=== PATIENT | female | born 1945 | race Caucasian/White ===

== ENCOUNTER 2018-10-07 07:02 | Emergency (ER) | payer MEDICARE, MEDICAID ==
--- OUTSIDE RECORDS SUMMARY | 2018-10-07 07:10 | XMS REPORT | Continuity of Care Document ---
:1945 External Reference #:[id number] Author Name SawyerJbHelena Care Team Providers Name Role Phone Dana Cochran MD Primary Care Physician Unavailable Payers Date Identification Numbers Payment Provider Subscriber Effective: 2018 Policy Number: [id number] Medicare Mohit Macdonaldel PayID: [id number] [address] [place] [address] Expires: 2018 Policy Number: [id number] Medicare Verla Mihir PayID: [id number] [address] [place] [address] Policy Number: [id number] Medicaid [employer]it [employer] Name: 1 [address] PayID: [id number] [place] [address] Advance Directives Description No Information Available Problems Active Problems Provider Date Chronic obstructive lung disease Vi Chen MD Onset: 04/06/2016 Disturbance in sleep behavior Vi Chen MD Onset: 04/06/2016 Obesity Vi Chen MD Onset: 04/06/2016 Encounter for screening for malignant Vi Chen MD Onset: 04/06/2016 neoplasm of respiratory organs Chronic obstructive pulmonary disease with Vi Chen MD Onset: 2016 (acute) exacerbation Headache Chloe Morales M.D. Onset: 07/05/2016 Obstructive sleep apnea syndrome Vi Chen MD Onset: 10/11/2016 Family History Date Family Member(s) Observation Comments Father at age 42 was Etoh/Seizures Mother Heart issues at age 67 Siblings 5 All w/heart issues ; one brother and one sister from heart issues Social History Type Date Description Comments Sex Unknown Marital Status Occupation Retired Tobacco Use Start: Unknown Quit 2008 ETOH Use Denies alcohol use Tobacco Use Start: Unknown End: Patient is a former Unknown smoker Recreational Drug Use Denies Drug Use Tobacco Use Start: Unknown Light tobacco smoker less 1PPD x 30 (10 or fewer years cigarettes/day) Smoking Status Reviewed: 09/23/18 Light tobacco smoker less 1PPD x 30 (10 or fewer years cigarettes/day) Exercise Type/Frequency Exercises sporadically Allergies, Adverse Reactions, Alerts Active Allergies Reaction Severity Comments Date Omeprazole 04/06/2016 Nylon Dermatologic Reaction 04/06/2016 Medications Active Medications SIG Qnty Indications Ordering Date Provider Prednisone Take one 30tabs Billy Robin, 09/23/2018 10mg Tablets capsule/tablet M.D. daily by mouth Ipratropium 1 unit every 6 540ml J44.9 [facility], 04/25/2018 [place]/Albuterol hours as needed MD Sulfate 0.5-2.5(3)mg/3ML Solution Nebulizer 1 unit nebulization 1units J44.9 [facility] ([facility], 04/25/2018 Kit/Tubing/Mouthpiece every 4- 6 hours as MD needed Kit Nebulizer 1 unit nebulization 1units J44.9 [facility] ([facility], 04/25/2018 Device with albuterol MD every 6 hours and as needed Omeprazole 1 by mouth every 30caps K21.9 [facility] ([facility], 04/25/2018 40mg day MD Capsules Atorvastatin Calcium take 1 tablet at Unknown 06/14/2016 bedtime 20mg Tablets Ranitidine 1-2 by mouth as Unknown 06/14/2016 150mg directed Capsules Vitamin D3 as directed (winter Unknown 06/14/2016 1000Iu months only) Capsules Aspir-Low 1 by mouth every Unknown 04/05/2016 81mg Tablets day Symbicort 2 puff twice a day Unknown 04/05/2016 80-4.5mcg/Act Aerosol Multivitamin Women one daily Unknown 50+ 50+ Tablets Amlodipine Besylate 1 by mouth every Unknown 5mg day Tablets Dicyclomine HCL 1 every 6 hours as Unknown 10mg needed Capsules Spironolactone 1/2 tablet daily Unknown 25mg Tablets Citalopram 1 by mouth one time Dana Cochran, Hydrobromide per day 10mg Tablets Vitamin B-12 1 by mouth one time Unknown 1000mcg per day Ventolin HFA 2 puffs by mouth Unknown four times a day as 108(90Base) mcg/Act needed Aerosol History Medications Prednisone 1 tab by mouth 30tabs J44.9 Vi Chen, 03/03/2018 - 5mg every day every MD 04/24/2018 Tablets morning Depakote ER 1-2 tab by mouth 60tabs G44.52 Chloe Seals 07/05/2016 - 500mg at bedtime as Kerwin Morales 10/17/2017 Tablets ER 24HR directed. Prednisone take as directed, 21units J44.1 Vi Chen, 06/14/2016 - 5mg (21) 6 tabs day#1, 5 06/19/2016 TBPK tabs day#2, 4 tabs day#3,3 tabs day#4,2 tabs day#5,1 tab day#6 Bisoprolol Fumarate 1/2 by mouth every Unknown 06/14/2016 - day 07/04/2016 5mg Tablets Hyoscyamine Sulfate 1 tablet by mouth Unknown 06/14/2016 - as directed 10/17/2017 0.125mg Tablets Sub Venlafaxine HCL 1 by mouth every Unknown 04/05/2016 - day 06/13/2016 25mg Tablets Alprazolam one by mouth up to Unknown - 0.25mg three times daily 10/10/2016 Tablets as needed for anxiety Fioricet 1 by mouth twice a Unknown - day as needed 10/10/2016 50-300-40mg headache max 2 Capsules days/wk Bisoprolol Fumarate 1 by mouth one Dana Cochran, - time per day 03/02/2018 5mg Tablets (switching to Amlodipine soon 01/10/18) Dicyclomine HCL 2 by mouth as Dana Cochran, - needed 03/02/2018 10mg Capsules Prednisone Dana Cochran, - 5mg 09/23/2018 Tablets Immunizations Description No Information Available Vital Signs Date Vital Result Comment 09/23/2018 11:21am Height 62 inches 5'2" Weight 157.00 lb Heart Rate 74 /min BP Systolic Sitting 122 mmHg BP Diastolic Sitting 80 mmHg Pain Level 4 O2 % BldC Oximetry 96 % BMI (Body Mass Index) 28.7 kg/m2 09/01/2018 1:27pm Height 62 inches 5'2" Weight 155.00 lb Heart Rate 70 /min BP Systolic Sitting 120 mmHg Respiratory Rate 20 /min O2 % BldC Oximetry 95 % BMI (Body Mass Index) 28.3 kg/m2 04/25/2018 10:28am Height 62 inches 5'2" Weight 166.00 lb Heart Rate 60 /min BP Systolic Sitting 118 mmHg Lue regular cuff BP Diastolic Sitting 70 mmHg Lue regular cuff Respiratory Rate 16 /min O2 % BldC Oximetry 98 % BMI (Body Mass Index) 30.4 kg/m2 03/03/2018 1:37pm Height 62 inches 5'2" Weight 167.25 lb Heart Rate 68 /min BP Systolic Sitting 124 mmHg Lue regular cuff BP Diastolic Sitting 74 mmHg Lue regular cuff Respiratory Rate 16 /min O2 % BldC Oximetry 96 % BMI (Body Mass Index) 30.6 kg/m2 01/10/2018 3:22pm Height 62 inches 5'2" Weight 167.25 lb Heart Rate 54 /min BP Systolic Sitting 108 mmHg Rue reg cuff BP Diastolic Sitting 80 mmHg Rue reg cuff Respiratory Rate 18 /min O2 % BldC Oximetry 96 % On Ra BMI (Body Mass Index) 30.6 kg/m2 10/18/2017 10:39am Height 62 inches 5'2" Weight 160.00 lb Heart Rate 60 /min BP Systolic Sitting 108 mmHg BP Diastolic Sitting 66 mmHg Respiratory Rate 14 /min O2 % BldC Oximetry 94 % BMI (Body Mass Index) 29.3 kg/m2 02/25/2017 12:56pm Height 62 inches 5'2" Weight 156.00 lb Heart Rate 76 /min BP Systolic Sitting 122 mmHg BP Diastolic Sitting 78 mmHg Respiratory Rate 14 /min O2 % BldC Oximetry 96 % BMI (Body Mass Index) 28.5 kg/m2 12/24/2016 1:40pm Height 62 inches 5'2" Weight 159.00 lb Heart Rate 54 /min BP Systolic Sitting 128 mmHg BP Diastolic Sitting 96 mmHg Respiratory Rate 24 /min O2 % BldC Oximetry 97 % room air BMI (Body Mass Index) 29.1 kg/m2 11/01/2016 2:55pm Height 62 inches 5'2" Weight 159.00 lb Heart Rate 52 /min BP Systolic Sitting 124 mmHg BP Diastolic Sitting 62 mmHg Respiratory Rate 14 /min BMI (Body Mass Index) 29.1 kg/m2 10/11/2016 12:54pm Height 62 inches 5'2" Weight 159.00 lb Heart Rate 58 /min BP Systolic Sitting 120 mmHg BP Diastolic Sitting 80 mmHg Respiratory Rate 14 /min O2 % BldC Oximetry 98 % BMI (Body Mass Index) 29.1 kg/m2 07/05/2016 12:47pm Height 62 inches 5'2" Weight 157.00 lb Heart Rate 72 /min BP Systolic Sitting 112 mmHg BP Diastolic Sitting 68 mmHg Respiratory Rate 14 /min BMI (Body Mass Index) 28.7 kg/m2 06/21/2016 1:38pm Height 62 inches 5'2" Weight 158.50 lb reported Heart Rate 72 /min BP Systolic 110 mmHg BP Diastolic 68 mmHg Respiratory Rate 12 /min O2 % BldC Oximetry 97 % BMI (Body Mass Index) 29.0 kg/m2 06/14/2016 9:33am Height 62 inches 5'2" Heart Rate 68 /min BP Systolic Sitting 138 mmHg BP Diastolic Sitting 78 mmHg Respiratory Rate 16 /min O2 % BldC Oximetry 97 % 04/06/2016 7:43am Height 62 inches 5'2" Weight 165.38 lb Heart Rate 60 /min BP Systolic Standing 132 mmHg BP Diastolic Standing 74 mmHg Respiratory Rate 16 /min O2 % BldC Oximetry 96 % BMI (Body Mass Index) 30.2 kg/m2 Neck Circumference in inches 14.25 Results Test Date Facility Test Result H/L Range Note Comp Metabolic Panel 09/23/2018 [facility] Sodium 138 mmol/L N 135-145 [address] [place] [address] [phone] Potassium 4.1 mmol/L N 3.5-5.0 Chloride 99 mmol/L Low 101-111 Co2 Carbon Dioxide 30 mmol/L N 22-32 Anion Gap 9 mmol/L N 2-11 Glucose 122 mg/dL High 70-100 Blood Urea Nitrogen 16 mg/dL N 6-24 Creatinine 0.95 mg/dL N 0.51-0.95 BUN/Creatinine Ratio 16.8 N 8-20 Calcium 10.3 mg/dL N 8.6-10.3 Total Protein 7.3 g/dL N 6.4-8.9 Albumin 4.7 g/dL N 3.2-5.2 Globulin 2.6 g/dL N 2-4 Albumin/Globulin Ratio 1.8 N 1-3 Total Bilirubin 0.90 mg/dL N 0.2-1.0 Alkaline Phosphatase 78 U/L N 34-104 Alt 26 U/L N 7-52 Ast 20 U/L N 13-39 Egfr Non- 57.7 >60 Egfr 69.8 >60 1 CBC Auto Diff 09/23/2018 [facility] White Blood 8.7 10^3/uL N 3.5-10.[address] [place] [address] [phone] Red Blood Count 5.15 10^6/uL High 3.70-4.87 Hemoglobin 16.6 g/dL High 12.0-16.0 Hematocrit 48 % High 33-41 Mean Corpuscular Volume 93 fL N 80-97 Mean Corpuscular Hemoglobin 32 pg High 27-31 Mean Corpuscular HGB Conc 35 g/dL N 31-36 Red Cell Distribution Width 14 % N 10.5-15 Platelet Count 203 10^3/uL N 150-450 Mean Platelet Volume 8.7 fL N 7.4-10.4 Abs Neutrophils 6.9 10^3/uL N 1.5-7.7 Abs Lymphocytes 1.5 10^3/uL N 1.0-4.8 Abs Monocytes 0.3 10^3/uL N 0-0.8 Abs Eosinophils 0 10^3/uL N 0-0.6 Abs Basophils 0 10^3/uL N 0-0.2 Abs Nucleated RBC 0 10^3/uL Granulocyte % 78.7 % Lymphocyte % 17.1 % Monocyte % 3.7 % Eosinophil % 0.2 % Basophil % 0.3 % Nucleated Red Blood Cells % 0 Vitamin B12 And 09/23/2018 [facility] Vitamin B12 497 pg/mL N 180-914 2 Folate Serum [address] [place] [address] [phone] Folic Acid (Folate) > 20.00 ng/mL >3.99 Laboratory test 09/23/2018 [facility] Vitamin D 34.8 ng/mL N 20-50 [address] Total 25(Oh) [place] [address] [phone] Hla B27 09/23/2018 [facility] Hla B27 Negative [address] [place] [address] [phone] Hla B27 Interp See Comment 5 Laboratory test 09/23/2018 [facility] Erythrocyte Sed 3 mm/Hr N 0-[address] [place] [address] [phone] C Reactive Protein < 1.00 mg/L N <8.01 Protein 09/23/2018 [facility] Total 7.1 g/dL 6.3 - Electrophoresis [address] Protein(Pep) 7.9 [place] [id number] [phone] Albumin 3.7 g/dL 3.4-4.7 Alpha-1 Globulin 0.3 g/dL 0.1-0.3 Alpha-2 Globulin 1.2 g/dL Abnormal 0.6-1.0 Beta Globulin 1.2 g/dL 0.7-1.2 Gamma Globulin 0.8 g/dL 0.6-1.6 Albumin/Globulin Ratio 1.12 Impression See Comment 6 Laboratory test 02/27/2018 [facility] Cytology SEE RESULT [address] [employer] [place] [address] [phone] Laboratory test 02/25/2017 [facility] TSH (Thyroid 1.16 mcIU/mL N 0.34-[address] Stim Horm) .60 [place] [address] [phone] CBC Auto Diff 02/25/2017 [facility] White Blood 6.4 10^3/uL N 3.5-[address] Count .8 [place] [address] [phone] Red Blood Count 4.66 10^6/uL N 4.0-5.4 Hemoglobin 15.2 g/dL N 12.0-16.0 Hematocrit 44 % N 35-47 Mean Corpuscular Volume 94 fL N 80-97 Mean Corpuscular Hemoglobin 33 pg High 27-31 Mean Corpuscular HGB Conc 35 g/dL N 31-36 Red Cell Distribution Width 13 % N 10.5-15 Platelet Count 153 10^3/uL N 150-450 Mean Platelet Volume 9 um3 N 7.4-10.4 Abs Neutrophils 3.7 10^3/uL N 1.5-7.7 Abs Lymphocytes 2.1 10^3/uL N 1.0-4.8 Abs Monocytes 0.4 10^3/uL N 0-0.8 Abs Eosinophils 0.1 10^3/uL N 0-0.6 Abs Basophils 0 10^3/uL N 0-0.2 Abs Nucleated RBC 0 10^3/uL N Granulocyte % 58.8 % N 38-83 Lymphocyte % 32.9 % N 25-47 Monocyte % 6.2 % N 1-9 Eosinophil % 1.6 % N 0-6 Basophil % 0.5 % N 0-2 Nucleated Red Blood Cells % 0.1 N Connective Tissue 07/05/2016 [facility] Anti-Nuclear Antibody 0.5 U N [address] [place] [address] [phone] Cyclic Citrullinated Peptide 42.4 U Abnormal 9 Interpretation See Comment N 10 Laboratory test 07/05/2016 [facility] C Reactive < 1.00 N < 5.00 [address] Protein mg/[place] [address] [phone] 1 Because ethnic data is not always readily available, this report includes an eGFR for both -Americans and non- Americans. The National Kidney Disease Education Program (NKDEP) does not endorse the use of the MDRD equation for patients that are not between the ages of 18 and 70, are , have extremes of body size, muscle mass, or nutritional status, or are non- or non-. According to the National Kidney Foundation, irrespective of diagnosis, the stage of the disease is based on the level of kidney function: Stage Description GFR(mL/min/1.73 m(2)) 1 Kidney damage with normal or decreased GFR 90 2 Kidney damage with mild decrease in GFR 60-89 3 Moderate decrease in GFR 30-59 4 Severe decrease in GFR 15-29 5 Kidney failure <15 (or dialysis) 2 Normal Range 180 to 914 Indeterminate Range 145 to 180 Deficient Range <145 3 Total 25-Hydroxyvitamin D2 and D3 (25-OH-VitD) <10 ng/mL (severe deficiency) 10-19 ng/mL (mild to moderate deficiency) 20-50 ng/mL (optimum levels) 51-80 ng/mL (increased risk of hypercalciuria) >80 ng/mL (toxicity possible) 4 REFERENCE VALUE Not Applicable 5 RESULT: HLA-B27 antigen was not detected. ADDITIONAL INFORMATION Method: Flow Cytometry Performing Laboratory CLIA# [id number] Test Performed by: [facility] [address] [place] [id number] RESULT: No apparent monoclonal protein on serum electrophoresis. Test Performed by: [facility] [address] [place] [address] 7 SEE RESULT BELOW Name: MOHIT ASH : [address]: Ryan Huber MD Acct: [id number] Unit: [id number] AGE: 72 Location: THYROID Re02/27/18 SEX: F Status: REG REF SPEC: [id number] ARABELLA: 02/27/[address] [facility] [address]: Ryan Huber MD REQ: [id number] RECD: 02/27/18 STATUS: ANTOINE RODRIGUEZ DR: Iggy Holcomb MD _ ORDERED: FNA-IMG GUID BX, CYTO ADEQ-1ST P FINAL DIAGNOSIS Thyroid, right, Ultrasound guided, fine needle aspiration: Benign thyroid nodule- colloid/hyperplastic (Novi class II). The specimen demonstrates moderate watery colloid, a modest amount of benign appearing follicular epithelium arranged in uniform sheets, medium sized follicles and only occasional small groups. No features of papillary carcinoma are seen. In this clinical setting the risk of malignancy is less than 3%. Clinical management of this thyroid nodule should be based on clinical and radiographic features as well as the above. THYROID RIGHT - US GUIDED FINE NEEDLE ASPIRATION CLINICAL HISTORY Right nodule- 3.7x 1.5x 2.3cm IMMEDIATE INTERPRETATION Pass 1- 3 ?inadequate, pass 4-adequate CONTINUED ON NEXT PAGE DEPARTMENT OF PATHOLOGY, [address] [place] [address] Nhan Ruiz M.D. Director [facility] # [id number] RUN DATE: 02/27/18 [facility] LAB LIVE PAGE 2 Patient: MIHIRMOHIT BHATIA Sukh [id number] (Continued) GROSS DESCRIPTION (Continued) GROSS DESCRIPTION 18- alcohol fixed slide(s) 4 - passes Signed by and Reported on: Nahn Ruiz MD 09/11 1125 END OF REPORT DEPARTMENT OF PATHOLOGY, [address] [place] [address] Nhan Ruiz M.D. Director [facility] # [id number] REFERENCE VALUE <=1.0 (Negative) 9 Interpretation: Positive (40.0-59.9) REFERENCE VALUE <20.0 (Negative) 10 RESULT: Compatible with rheumatoid arthritis. Test Performed by: [address] [address] [employer]: Rayshawn Escobedo II, M.D., Ph.D. 11 Acute inflammation: >10.00 Procedures Date Code Description Status 05/13/2018 95870 Polysomnography Sleep Staging 4+ Parameters W/Cpap Completed 11/05/2017 94734 Spirometry Incl Graphic Record Completed 02/26/2017 96243 Sleep Study Unattended,HRT Rate,Oxygen Sat,Resp Completed Effort/Airflow 10/01/2016 37067 Polysomnography Sleep Staging 4+ Parameters Completed 05/31/2016 80392 Pulmonary Stress Test Simple Completed Encounters Type Date Location Provider Dx Diagnosis Office Visit 09/01/2018 Pulmonology And Vi Chen, J44.9 Chronic obstructive 1:45p Sleep Services Of pulmonary disease, Auditing Specialist unspecified K21.9 Gastro-esophageal reflux disease without esophagitis G47.33 Obstructive sleep apnea (adult) (pediatric) Office Visit 04/25/2018 10:45a Pulmonology And Sleep Vi Chen MD R05 [facility] J44.9 Chronic obstructive pulmonary disease, unspecified G47.33 Obstructive sleep apnea (adult) (pediatric) K21.9 Gastro-esophageal reflux disease without esophagitis Office Visit 03/03/2018 1:45p Pulmonology And Vi J44.9 Chronic Sleep Services Of MD Gustavo obstructive Auditing Specialist pulmonary disease, unspecified G47.33 Obstructive sleep apnea (adult) (pediatric) E66.09 Other obesity due to excess calories Office Visit 01/10/2018 3:00p Pulmonology And Vi J43.9 Emphysema, Sleep Services Of MD Gustavo unspecified [facility] G47.33 Obstructive sleep apnea (adult) (pediatric) Office Visit 10/18/2017 Pulmonology And Magali G47.33 Obstructive sleep 11:00a Sleep Services Of MAGALYS Lee, RN, apnea (adult) [facility] (pediatric) J44.9 Chronic obstructive pulmonary disease, unspecified Office Visit 02/25/2017 1:00p Pulmonology And Vi G47.33 Obstructive sleep Sleep [facility] Of MD Gustavo apnea (adult) [facility] (pediatric) J44.9 Chronic obstructive pulmonary disease, unspecified Office Visit 12/24/2016 1:45p Pulmonology And Vi G47.33 Obstructive sleep Sleep Services Of MD Gustavo apnea (adult) [facility] (pediatric) J44.9 Chronic obstructive pulmonary disease, unspecified Office Visit 11/01/2016 2:45p Jose Seals M25.50 Pain in Neurologic Kerwin Morales unspecified joint Services Of [facility] R76.0 Raised antibody titer G44.59 Other complicated headache syndrome Office Visit 10/11/2016 1:45p Pulmonology And Vi G47.33 Obstructive sleep Sleep Services Of MD Gustavo apnea (adult) [facility] (pediatric) J44.9 Chronic obstructive pulmonary disease, unspecified Office Visit 07/05/2016 1:00p Jose Seals G44.52 New daily Services Of Edy Morales M.D. persistent headache (NDPH) G44.41 Drug-induced headache, not elsewhere classified, intractable G44.59 Other complicated headache syndrome Office Visit 06/21/2016 2:00p Pulmonology And Vi J44.9 Chronic Sleep [facility] Of [facility] [place] obstructive Auditing Specialist pulmonary disease, unspecified G47.9 Sleep disorder, unspecified Office Visit 06/14/2016 10:00a Pulmonology And Vi J44.1 Chronic Sleep [facility] Of MD [place] obstructive Auditing Specialist pulmonary disease w (acute) exacerbation G47.9 Sleep disorder, unspecified Office Visit 04/06/2016 7:30a Pulmonology And Vi J44.9 Chronic [facility] Of [place] obstructive Auditing Specialist pulmonary disease, unspecified G47.9 Sleep disorder, unspecified Z87.891 Personal history of nicotine dependence E66.09 Other obesity due to excess calories Z68.30 Body mass index (BMI) 30.0-30.9, adult Plan of Treatment Future Appointment(s):10/28/2018 4:00 pm - Billy Robin M.D. at [facility]03/12/2019 1:45 pm - Vi Chen MD at [facility]09/23/2018 - Billy Robin M.D.M06.09 Rheumatoid arthritis without rheumatoid factor, multiple sitR51 HeadacheReferral:Ty Cano MD, Surgery,GeneralFollow up:Follow up in 3 to 4 weeks or sooner if kkhepwB89.5 Low back painM54.2 DjqpatqpbbcK93.0 Asymptomatic menopausal stateNew Xrays:Dexa Bone Study, Ordered: 09/23/18Z79.899 Other chcf ( current) drug vvwsahdB86.10 Myalgia, unspecified site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, site oyiogbpyecxK00.9 Vitamin D deficiency, rbokohlbabmZ22.8 Other disturbances of skin sensation
--- OUTSIDE RECORDS SUMMARY | 2018-10-07 07:10 | XMS REPORT | Continuity of Care Document ---
:1945 External Reference #:[id number] Author Name Cassy Lux Care Team Providers Name Role Phone Dana Cochran MD Primary Care Physician Unavailable Payers Date Identification Numbers Payment Provider Subscriber Effective: 2018 Policy Number: [id number] Medicare Verla Mihir PayID: [id number] [address] [place] [address] Expires: 2018 Policy Number: [id number] Medicare Verla Mihir PayID: [id number] [address] [place] [address] Policy Number: [id number] Medicaid [employer] Name: 1 1 [address] PayID: [id number] [place] [address] Advance Directives Description No Information Available Problems [...] or fewer years cigarettes/day) Smoking Status Reviewed: 09/29/18 Light tobacco smoker less 1PPD x 30 (10 or fewer years cigarettes/day) Exercise Type/Frequency Exercises sporadically Allergies, Adverse Reactions, Alerts Active Allergies Reaction Severity Comments Date Omeprazole 04/06/2016 Nylon Dermatologic Reaction 04/06/2016 Medications Active Medications SIG Qnty Indications Ordering Date Provider Prednisone Take one 30tabs Billy Robin, 09/23/2018 10mg Tablets capsule/tablet M.D. daily by mouth Ipratropium 1 unit every 6 540ml J44.9 [facility], 04/25/2018 Early/Albuterol hours as needed MD Sulfate 0.5-2.5(3)mg/3ML Solution Nebulizer 1 unit nebulization 1units J44.9 [facility], 04/25/2018 Kit/Tubing/Mouthpiece every 4- 6 hours as MD needed Kit Nebulizer 1 unit nebulization 1units J44.9 [facility], 04/25/2018 Device with albuterol MD every 6 hours and as needed Omeprazole 1 by mouth every 30caps K21.9 [facility], 04/25/2018 40mg day MD Capsules Atorvastatin Calcium [...] one time Dana Cochran, Hydrobromide per day MD 10mg Tablets Vitamin B-12 1 by mouth [...] - 5mg (21) 6 tabs day#1, 5 MD 06/19/2016 TBPK tabs day#2, 4 tabs day#3,3 [...] Available Vital Signs Date Vital Result Comment 09/29/2018 10:08am Height 62 inches 5'2" Weight 159.00 lb Heart Rate 62 /min BP Systolic 128 mmHg BP Diastolic 72 mmHg Respiratory Rate 16 /min Body Temperature 97.2 F BMI (Body Mass Index) 29.1 kg/m2 09/23/2018 11:21am Height 62 inches 5'2" Weight [...] H/L Range Note Comp Metabolic Panel 09/23/2018 [facility] Sodium 138 mmol/L N 135-[address] [place] [address] [phone] Potassium 4.1 mmol/L N 3.5-5.0 Chloride 99 [...] 69.8 >60 1 CBC Auto Diff 09/23/2018 [facility] White Blood 8.7 10^3/uL N 3.5-10.[address] [place] [address] [phone] Red Blood Count 5.15 10^6/uL High 3.70-4.87 [...] Cells % 0 Vitamin B12 And 09/23/2018 [facility] Vitamin B12 497 pg/mL N 180-[address] [place] [address] [phone] Folic Acid (Folate) > 20.00 ng/mL >3.99 Laboratory test 09/23/2018 [facility] Vitamin D 34.8 ng/mL N 20-[address] Total [address] [place] [id number] [phone] Hla B27 09/23/2018 [facility] Hla B27 Negative [address] [place] [address] [phone] Hla B27 Interp See Comment 5 Laboratory test 09/23/2018 [facility] Erythrocyte Sed 3 mm/Hr N 0-[address] [place] [address] [phone] C Reactive Protein < 1.00 mg/L N <8.01 Protein 09/23/2018 [facility] Total 7.1 g/dL 6.3 - Electrophoresis DRIVE Protein(Pep) 7.9 [place] [address] [phone] Albumin 3.7 g/dL 3.4-4.7 Alpha-1 Globulin 0.3 g/dL 0.1-0.3 Alpha-2 Globulin 1.2 g/dL Abnormal 0.6-1.0 Beta Globulin 1.2 g/dL 0.7-1.2 Gamma Globulin 0.8 g/dL 0.6-1.6 Albumin/Globulin Ratio 1.12 Impression See Comment 6 Laboratory test 02/27/2018 [facility] Cytology SEE RESULT [address] [employer] [place] [address] [phone] Laboratory test 02/25/2017 [facility] TSH (Thyroid 1.16 mcIU/mL N 0.34-[address] Stim Horm) .60 [place] [address] [phone] CBC Auto Diff 02/25/2017 [facility] White Blood 6.4 10^3/uL N 3.5-[address] DR[address] Count .8 [place] [address] [phone] Red Blood Count 4.66 10^6/uL N 4.0-5.4 [...] Cells % 0.1 N Connective Tissue 07/05/2016 [facility] Anti-Nuclear Antibody 0.5 U N [address] [place] [address] [phone] Cyclic Citrullinated Peptide 42.4 U Abnormal 9 Interpretation See Comment N 10 Laboratory test 07/05/2016 [facility] C Reactive < 1.00 N < 5.[address] Protein mg/[place] [address] [phone] 1 Because ethnic data is not always [...] INFORMATION Method: Flow Cytometry Performing Laboratory CLIA# [id number] Test Performed by: [facility] [address] [phone] [id number] RESULT: No apparent monoclonal protein on serum electrophoresis. Test Performed by: [facility] [address] [id number] SEE RESULT BELOW Name: MOHIT ASH : [address]: Ryan Huber MD Acct: [id number] Unit: [id number] AGE: 72 Location: THYROID Re02/27/18 SEX: F Status: REG REF SPEC: [id number] ARABELLA: 02/27/18-[address] [facility] [address]: Ryan Huber MD REQ: [id number] RECD: 02/27/18 STATUS: ANTOINE RODRIGUEZ DR: Iggy Holcomb MD _ ORDERED: FNA-IMG GUID BX, CYTO ADEQ-1ST P FINAL DIAGNOSIS Thyroid, right, Ultrasound guided, fine needle aspiration: Benign thyroid nodule- colloid/hyperplastic ([place] class II). The specimen demonstrates moderate watery [...] CONTINUED ON NEXT PAGE DEPARTMENT OF PATHOLOGY, [address] [place] [address] Nhan Ruiz M.D. Director CLIA # [id number] RUN DATE: 02/27/18 [facility] LAB LIVE PAGE 2 Patient: MOHIT ASH [id number] (Continued) GROSS DESCRIPTION (Continued) GROSS DESCRIPTION 18- alcohol fixed slide(s) 4 - passes Signed by and Reported on: Nhan Ruiz MD 09/11 1125 END OF REPORT DEPARTMENT OF PATHOLOGY, [address] [place] [address] Nhan Riuz M.D. Director [facility] # [id number] REFERENCE VALUE <=1.0 (Negative) 9 Interpretation: Positive (40.0-59.9) REFERENCE VALUE <20.0 (Negative) 10 RESULT: Compatible with rheumatoid arthritis. Test Performed by: [facility] [address] [address] [employer] Treating Inspector: Rayshawn Escobedo II, M.D., Ph.D. 11 Acute inflammation: >10.00 Procedures Date Code Description Status 05/13/2018 37231 Polysomnography Sleep Staging 4+ Parameters W/Cpap Completed 11/05/2017 08210 Spirometry Incl Graphic Record Completed 02/26/2017 55797 Sleep Study Unattended,HRT Rate,Oxygen Sat,Resp Completed Effort/Airflow 10/01/2016 57259 Polysomnography Sleep Staging 4+ Parameters Completed 05/31/2016 38315 Pulmonary Stress Test Simple Completed Encounters Type Date Location Provider Dx Diagnosis Office Visit 09/01/2018 Pulmonology And Gee Crane Chronic obstructive 1:45p Sleep Services Of pulmonary disease, [facility] unspecified K21.9 Gastro-esophageal reflux disease without esophagitis G47.33 Obstructive sleep apnea (adult) (pediatric) Office Visit 04/25/2018 10:45a Pulmonology And Sleep Vi Chen MD R05 Cough [facility] Of [facility] J44.9 Chronic obstructive pulmonary disease, unspecified G47.33 Obstructive sleep apnea (adult) (pediatric) K21.9 Gastro-esophageal reflux disease without esophagitis Office Visit 03/03/2018 1:45p Pulmonology And Vi Luz44.9 Chronic Sleep Services Of MD Gustavo obstructive [facility] pulmonary disease, unspecified G47.33 Obstructive sleep apnea (adult) (pediatric) E66.09 Other obesity due to excess calories Office Visit 01/10/2018 3:00p Pulmonology And Vi J43.9 Emphysema, Sleep Services Of MD Gustavo unspecified [employer] G47.33 Obstructive sleep apnea (adult) (pediatric) Office Visit 10/18/2017 Pulmonology And Magali G47.33 Obstructive sleep 11:00a Sleep Services Of MAGALYS Lee, RN, apnea (adult) [facility]- (pediatric) J44.9 Chronic obstructive pulmonary disease, unspecified Office Visit 02/25/2017 1:00p Pulmonology And Vi G47.33 Obstructive sleep Sleep Services Of MD Gustavo apnea (adult) [facility] (pediatric) J44.9 Chronic obstructive pulmonary disease, unspecified Office Visit 12/24/2016 1:45p Pulmonology And Vi G47.33 Obstructive sleep Sleep Services Of MD Gustavo apnea (adult) [facility] (pediatric) J44.9 Chronic obstructive pulmonary disease, unspecified Office Visit 11/01/2016 2:45p Jose Seals M25.50 Pain in Neurologic Reji Morales. unspecified joint Services Of [facility] R76.0 Raised antibody titer G44.59 Other complicated headache syndrome Office Visit 10/11/2016 1:45p Pulmonology And Vi G47.33 Obstructive sleep Sleep Services Of MD Gustavo apnea (adult) [facility] (pediatric) J44.9 Chronic obstructive pulmonary disease, unspecified Office Visit 07/05/2016 1:00p [place] [facility] Chloe GarnerCarla G44.52 New daily Services Of [facility] Reji Morales. persistent headache (NDPH) G44.41 Drug-induced headache, not elsewhere classified, intractable G44.59 Other complicated headache syndrome Office Visit 06/21/2016 2:00p Pulmonology And Vi J44.9 Chronic Sleep Services Of MD Gustavo obstructive [facility] pulmonary disease, unspecified G47.9 Sleep disorder, unspecified Office Visit 06/14/2016 10:00a Pulmonology And Vi J44.1 Chronic Sleep Services Of MD Gustavo obstructive [facility] pulmonary disease w (acute) exacerbation G47.9 Sleep disorder, unspecified Office Visit 04/06/2016 7:30a Pulmonology And Vi J44.9 Chronic Sleep Services Of MD Gustavo obstructive [facility] pulmonary disease, unspecified G47.9 Sleep disorder, unspecified Z87.891 Personal history of nicotine dependence E66.09 Other obesity due to excess calories Z68.30 Body mass index (BMI) 30.0-30.9, adult Plan of Treatment Future Appointment(s):10/07/2018 1:00 pm - Ty Cano MD, FACS at [facility]10/28/2018 4:00 pm - Billy Robin M.D. at [facility]03/12/2019 1:45 pm - Vi Chen MD at [facility]
[2018-10-07 07:13] VITALS: BP 133/71
--- NOTE | 2018-10-07 07:24 | UC ---
UC General HPI - HPI Summary HPI Summary: 5 days of worsening productive cough and shortness of breath. Has COPD and RA on chronic prednisone. Has started her nebulizer with no relief. Frontal H/A. Subjective fevers (thermometer broke) and chils. +DIarrhea. Body aches. No N/V or abdominal pain. No rash. Remote smoker. Meds: reviewed Appetite adequate. States she has been taking nyquil and dayquil. Feels like she is getting worse. - History of Current Complaint Chief Complaint: UCRespiratory Stated Complaint: FLU LIKE SYMPTOMS Time Seen by Provider: 10/07/18 07:12 Pain Intensity: 5 - Allergy/Home Medications Allergies/Adverse Reactions: Allergies Allergy/AdvReac Type Severity Reaction Status Date / Time Seasonal Allergies Allergy Intermediate Congestion Uncoded 10/07/18 07:13 Home Medications: Home Medications Dicyclomine CAP* [Bentyl CAP*] 10 mg PO DAILY 10/07/18 [History Confirmed ] Multivitamins/Minerals TAB* [Theragran/minerals TAB*] 1 tab PO DAILY 10/07/18 [ History Confirmed 10/07/18] amLODIPine TAB* [Norvasc 5 mg TAB*] 5 mg PO DAILY 10/07/18 [History Confirmed ] predniSONE TAB* [Deltasone TAB*] 5 mg PO BID 10/07/18 [History Confirmed ] PMH/Surg Hx/FS Hx/Imm Hx Previously Healthy: Yes Endocrine History: Dyslipidemia Cardiovascular History: Hypertension Respiratory History: COPD - Surgical History Surgical History: Yes Surgery Procedure, Year, and Place: Hysterectomy, Lumpectomy x 2 left breast benign. - Family History Known Family History: Positive: Hypertension - Social History Alcohol Use: None Substance Use Type: None Smoking Status (MU): Former Smoker When Did the Patient Quit Smoking/Using Tobacco: 11 yrs ago Review of Systems All Other Systems Reviewed And Are Negative: Yes Constitutional: Positive: Fever, Chills ENT: Positive: Sore Throat, Sinus Congestion Respiratory: Positive: Shortness Of Breath Gastrointestinal: Positive: Diarrhea Physical Exam Triage Information Reviewed: Yes Appearance: Other: - mildly ill appearing Vital Signs: Initial Vital Signs Temp 98.9 F 10/07/18 07:09 Pulse 88 10/07/18 07:09 Resp 16 10/07/18 07:09 BP 133/71 10/07/18 07:09 Pulse Ox 96 10/07/18 07:09 Vital Signs Reviewed: Yes Eyes: Positive: Conjunctiva Clear ENT: Positive: Pharyngeal erythema, Nasal congestion, Hoarse voice, Other - clear fluid b/l Neck: Positive: Enlarged Nodes @ - anterior cervical chain Respiratory: Positive: Other: - diminished breath sounds, rhonchi over RLL. No increase in wob Cardiovascular: Positive: RRR, No Murmur Abdomen Description: Positive: Soft Diagnostics - Radiology CXR Radiology Interpretation Completed By: Radiologist Summary of Radiographic Findings: hyperinflation, COPD, no acute process Course/Dx - Course Course Of Treatment: This is a 73 yr old with PMHx of COPD and RA on chronic prednisone presents with worsening cough, fever and SOB Assessment Flu: Negative CXR: Hyperinflation, no acute finding Dx: COPD exacerbation secondary to bronchitis Plan Recommend prednisone 40 mg daily for 5 days then back to your regular scheduled dosing Tessalon pearls as needed for cough Continue Albuterol nebulizer every 4 hours while ill, then change to as needed Start Azithromycin as prescribed If symptoms persist or worsen, recommend close follow up with your primary care provider, return to urgent care or go to the ER - Diagnoses Provider Diagnosis: COPD exacerbation, Bronchitis Discharge - Sign-Out/Discharge Documenting (check all that apply): Patient Departure All imaging exams completed and their final reports reviewed: Yes - Discharge Plan Condition: Fair Disposition: HOME Prescriptions: Azithromycin TAB* [Zithromax TAB (Z-MINAL) 250 mg #6 tabs] 2 tab PO .TODAY, THEN 1 DAILY #1 minal Benzonatate CAP* [Tessalon 100 MG CAP*] 200 mg PO TID PRN #30 cap PRN Reason: Cough predniSONE [Prednisone 20 MG TAB] 40 mg PO DAILY #10 tablet Patient Education Materials: COPD (Chronic Obstructive Pulmonary Disease) (ED) , Acute Bronchitis (ED) Referrals: Dana Cochran MD [Primary Care Provider] - Additional Instructions: Recommend prednisone 40 mg daily for 5 days then back to your regular scheduled dosing Tessalon pearls as needed for cough Continue Albuterol nebulizer every 4 hours while ill, then change to as needed Start Azithromycin as prescribed If symptoms persist or worsen, recommend close follow up with your primary care provider, return to urgent care or go to the ER - Billing Disposition and Condition Condition: FAIR Disposition: Home
[2018-10-07 07:37] LABS: Influenza A Molecular NEGATIVE (Negative); Influenza B Molecular NEGATIVE (Negative)
== END 2018-10-07 08:00 | disposition home or self-care (01) ==
LOC: UCEAST 07:02
DX: J44.1 Chronic obstructive pulmonary disease with (acute) exacerbation (principal); J34.89 Other specified disorders of nose and nasal sinuses; I10 Essential (primary) hypertension; R59.0 Localized enlarged lymph nodes; M06.9 Rheumatoid arthritis, unspecified; R19.7 Diarrhea, unspecified; Z87.891 Personal history of nicotine dependence; Z79.899 Other long term (current) drug therapy; Z91.09 Other allergy status, other than to drugs and biological substances
CPT/HCPCS: 71046; 99212; G0463

== ENCOUNTER 2018-10-15 15:32 | Emergency (ER) | payer MEDICARE, MEDICAID ==
--- OUTSIDE RECORDS SUMMARY | 2018-10-15 15:37 | XMS REPORT | Continuity of Care Document ---
:1945 External Reference #:[id number] Author Name Jose J Cassy Care Team Providers Name Role Phone Dana Cochran MD Primary Care Physician Unavailable Payers Date Identification Numbers Payment Provider Subscriber Effective: 2018 Policy Number: [id number] Medicare Verla Mihir PayID: [id number] [address] [facility] [address] Expires: 2018 Policy Number: [id number] Medicare Verla Mihir PayID: [id number] [address] [place] [address] Policy Number: [id number] Medicaid [employer] Name: 1 [address] PayID: [id number] [place] [address] Problems Active Problems Provider Date Chronic obstructive [...] or fewer years cigarettes/day) Smoking Status Reviewed: 10/09/18 Light tobacco smoker less 1PPD x 30 (10 or fewer years cigarettes/day) Exercise Type/Frequency Exercises sporadically Allergies, Adverse Reactions, Alerts Active Allergies Reaction Severity Comments Date Omeprazole 04/06/2016 Nylon Dermatologic Reaction 04/06/2016 Medications Active Medications SIG Qnty Indications Ordering Date Provider Prednisone Take one 30tabs Billy Robin, 09/23/2018 10mg Tablets capsule/tablet M.D. daily by mouth Ipratropium 1 unit every 6 540ml J44.9 [facility], 04/25/2018 [place]/Albuterol hours as needed MD Sulfate 0.5-2.5(3)mg/3ML Solution Nebulizer 1 unit nebulization 1units J44.9 [facility], 04/25/2018 Kit/Tubing/Mouthpiece every 4- 6 hours as MD needed Kit Nebulizer 1 unit nebulization 1units J44.9 [facility], 04/25/2018 Device with albuterol MD every 6 hours and as needed Omeprazole 1 by mouth every 30caps K21.9 [facility], 04/25/2018 40mg day MD Capsules Atorvastatin [...] 10mg Capsules Prednisone Dana Cochran, - 5mg MD 09/23/2018 Tablets Vital Signs Date Vital Result Comment 10/09/2018 9:57am Heart Rate 80 /min BP Systolic 150 mmHg BP Diastolic 90 mmHg Respiratory Rate 16 /min Body Temperature 98.0 F 09/29/2018 10:08am Height 62 inches 5'2" Weight [...] Date Facility Test Result H/L Range Note Laboratory test 09/29/2018 [facility] Surgical SEE RESULT 1 , [address] [place] [address] [phone] Laboratory test 09/23/2018 [facility] Erythrocyte Sed 3 mm/Hr N 0-[address] [place] [address] [phone] C Reactive Protein < 1.00 mg/L N <8.01 Protein 09/23/2018 [facility] Total 7.1 g/dL 6.3 - Electrophoresis [address] Protein(Pep) 7.9 [place] [address] [phone] Albumin 3.7 g/dL 3.4-4.7 Alpha-1 Globulin 0.3 g/dL 0.1-0.3 Alpha-2 Globulin 1.2 g/dL Abnormal 0.6-1.0 Beta Globulin 1.2 g/dL 0.7-1.2 Gamma Globulin 0.8 g/dL 0.6-1.6 Albumin/Globulin Ratio 1.12 Impression See Comment 3 Hla B27 09/23/2018 [facility] Hla B27 Negative [address] [place] [address] [phone] Hla B27 Interp See Comment 5 Laboratory test 09/23/2018 [facility] Vitamin D 34.8 ng/mL N 20-[address] Total 25(Oh) [place] [address] [phone] Vitamin B12 And 09/23/2018 [facility] Vitamin B12 497 pg/mL N 180-914 7 Folate Serum [address] [place] [address] [phone] Folic Acid (Folate) > 20.00 ng/mL >3.99 CBC Auto Diff 09/23/2018 [facility] White Blood 8.7 10^3/uL N 3.5-10.[address] [place] [address] [phone] Red Blood Count 5.15 10^6/uL High 3.70-4.87 [...] % Nucleated Red Blood Cells % 0 Comp Metabolic Panel 09/23/2018 [facility] Sodium 138 mmol/L N 135-[address] [place] [address] [phone] Potassium 4.1 mmol/L N 3.5-5.0 Chloride 99 [...] Egfr Non- 57.7 >60 Egfr 69.8 >60 8 Laboratory test 02/27/2018 [facility] Cytology SEE RESULT [address] Non-Quarry [employer] [place] [address] [phone] Laboratory test 02/25/2017 [facility] TSH (Thyroid 1.16 mcIU/mL N 0.34-[address] Stim Horm) .60 [place] [address] [phone] CBC Auto Diff 02/25/2017 [facility] White Blood 6.4 10^3/uL N 3.5-[address] Count .8 [place] [address] [phone] Red Blood Count 4.66 10^6/uL N 4.0-5.4 [...] Cells % 0.1 N Connective Tissue 07/05/2016 [facility] Anti-Nuclear 0.5 U N [address] [place] [address] [phone] Cyclic Citrullinated Peptide 42.4 U Abnormal 11 Interpretation See Comment N 12 Laboratory test 07/05/2016 [facility] C Reactive < 1.00 N < 5.00 [address] Protein mg/[place] [address] [phone] 1 [id number] 2 SEE RESULT BELOW Name: MOHIT ASH : [address]: Ty Cano MD Acct: [id number] Unit: [id number] AGE: 73 Location: [facility] Re09/29/18 SEX: F Status: REG REF SPEC: [id number] ARABELLA: 09/29/18-[address]: Ty Cano MD REQ: [id number] RECD: 09/29/18 STATUS: SOUT _ ORDERED: LEVEL 4 COMMENTS: [id number] FINAL DIAGNOSIS Temporal artery, left, biopsy: -- Segments of fibromuscular artery with minimal intimal hyperplasia. -- No evidence of arteritis identified. CLINICAL HISTORY No history given GROSS DESCRIPTION The specimen is received in formalin labeled, Temporal Artery Left Side, and consists of a 3.2 x 0.3 cm white-pink two red-brown serpentine tubular soft tissue fragment , which is inked, serially sectioned and entirely submitted in one cassette. Signed by and Reported on: Nhan Ruiz MD 12/12 1036 END OF REPORT DEPARTMENT OF PATHOLOGY, [address] [place] [address] Nhan Ruiz M.D. Director [facility] # [id number] 3 RESULT: No apparent monoclonal protein on serum electrophoresis. Test Performed by: [facility] [address] [place] [address] 4 REFERENCE VALUE Not Applicable 5 RESULT: HLA-B27 antigen was not detected. ADDITIONAL INFORMATION Method: Flow Cytometry Performing Laboratory CLIA# [id number] Test Performed by: [facility] - [address] [address] 6 Total 25-Hydroxyvitamin D2 and D3 (25-OH-VitD) <10 ng/mL (severe deficiency) 10-19 ng/mL (mild to moderate deficiency) 20-50 ng/mL (optimum levels) 51-80 ng/mL (increased risk of hypercalciuria) >80 ng/mL (toxicity possible) 7 Normal Range 180 to 914 Indeterminate Range 145 to 180 Deficient Range <145 8 Because ethnic data is not always readily [...] 15-29 5 Kidney failure <15 (or dialysis) 9 SEE RESULT BELOW Name: MOHIT ASH : [address]: Ryan Huber MD Acct: [id number] Unit: [id number] AGE: 72 Location: THYROID Re02/27/18 SEX: F Status: REG REF SPEC: [id number] ARABELLA: 02/27/18-[address] [facility] DR: Ryan Huber MD REQ: [id number] RECD: 02/27/18 STATUS: ANTOINE RODRIGUEZ DR: Iggy Holcomb MD _ ORDERED: FNA-IMG GUID BX, CYTO ADEQ-1ST P FINAL DIAGNOSIS Thyroid, right, Ultrasound guided, fine needle aspiration: Benign thyroid nodule- colloid/hyperplastic (Austin class II). The specimen demonstrates moderate watery [...] CONTINUED ON NEXT PAGE DEPARTMENT OF PATHOLOGY, [address] [employer] [place] [address] Nhan Ruiz M.D. Director [facility] # [id number] RUN DATE: 02/27/18 [facility] LAB LIVE PAGE 2 Patient: MOHIT ASH [id number] (Continued) GROSS DESCRIPTION (Continued) GROSS DESCRIPTION 18- alcohol fixed slide(s) 4 - passes Signed by and Reported on: Nhan Ruiz MD 09/11 1125 END OF REPORT DEPARTMENT OF PATHOLOGY, [facility] [employer] [place], [place] [address] Nhan Ruiz M.D. Director [facility] # [id number] 10 REFERENCE VALUE <=1.0 (Negative) 11 Interpretation: Positive (40.0-59.9) REFERENCE VALUE <20.0 (Negative) 12 RESULT: Compatible with rheumatoid arthritis. Test Performed by: [address] [address] Insurance Sales Producer: Rayshawn Escobedo II, M.D., Ph.D. 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, multiple sites R51 Headache M54.5 Low back pain M54.2 Cervicalgia Z78.0 Asymptomatic menopausal state M79.10 Myalgia, unspecified site 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, site unspecified E55.9 Vitamin D deficiency, unspecified R20.8 Other disturbances of skin sensation 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.52 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 Office Visit 09/01/2018 1:45p Pulmonology And Vi Luz44.9 Chronic Sleep [facility] MD Gustavo obstructive Generator Technician pulmonary disease, unspecified K21.9 Gastro-esophageal reflux disease without esophagitis G47.33 Obstructive sleep apnea (adult) (pediatric) Office Visit 04/25/2018 10:45a Pulmonology And Sleep Vi Chen MD R05 Cough [facility] Luz44.9 Chronic obstructive pulmonary disease, unspecified G47.33 Obstructive sleep apnea (adult) (pediatric) K21.9 Gastro-esophageal reflux disease without esophagitis Office Visit 03/03/2018 1:45p Pulmonology And Vi J44.9 Chronic [facility] obstructive Generator Technician pulmonary disease, unspecified G47.33 Obstructive sleep apnea (adult) (pediatric) E66.09 Other obesity due to excess calories Office Visit 01/10/2018 3:00p Pulmonology And Vi J43.9 Emphysema, Sleep [facility] unspecified Generator Technician G47.33 Obstructive sleep apnea (adult) (pediatric) Office Visit 10/18/2017 Pulmonology And Magali G47.33 Obstructive sleep 11:00a Sleep [facility]ALYS Lee, RN, apnea (adult) [facility] RECORDS SPECIALIST- (pediatric) J44.9 Chronic obstructive pulmonary disease, unspecified Office Visit 02/25/2017 1:00p Pulmonology And Vi G47.33 Obstructive sleep [facility] apnea (adult) [facility] (pediatric) J44.9 Chronic obstructive pulmonary disease, unspecified Office Visit 12/24/2016 1:45p Pulmonology And Vi G47.33 Obstructive sleep [facility]avo apnea (adult) [facility] (pediatric) J44.9 Chronic obstructive pulmonary disease, unspecified Office Visit 11/01/2016 2:45p Jose Seals M25.50 Pain in Neurologic Kerwin Morales unspecified joint [facility] R76.0 Raised antibody titer G44.59 Other complicated headache syndrome Office Visit 10/11/2016 1:45p Pulmonology And Vi G47.33 Obstructive sleep Sleep [facility] apnea (adult) [facility] (pediatric) J44.9 Chronic obstructive pulmonary disease, unspecified Office Visit 07/05/2016 1:00p Jose Seals G44.52 New daily [facility] Morales M.D. persistent headache (NDPH) G44.41 Drug-induced headache, not elsewhere classified, intractable G44.59 Other complicated headache syndrome Office Visit 06/21/2016 2:00p Pulmonology And Vi J44.9 Chronic Sleep [facility] obstructive Generator Technician pulmonary disease, unspecified G47.9 Sleep disorder, unspecified Office Visit 06/14/2016 10:00a Pulmonology And Vi J44.1 Chronic Sleep [facility] obstructive Generator Technician pulmonary disease w (acute) exacerbation G47.9 Sleep disorder, unspecified Office Visit 04/06/2016 7:30a Pulmonology And Vi J44.9 Chronic Sleep [facility] obstructive Generator Technician pulmonary disease, unspecified G47.9 Sleep disorder, unspecified Z87.891 Personal history of nicotine dependence E66.09 Other obesity due to excess calories Z68.30 Body mass index (BMI) 30.0-30.9, adult Plan of Treatment Future Appointment(s):10/28/2018 4:00 pm - Billy Robin M.D. at Rheumatology [facility]03/12/2019 1:45 pm - Vi Chen MD at Pulmonology And Sleep [facility]10/09/2018 - Ty Cano MD, [id number] HeadacheFollow up: None needed
[2018-10-15 15:44] VITALS: BP 115/67
[2018-10-15] MEDS ORDERED: Aspirin 81 mg CHEW TAB* 81 MG TAB.CHEW PO ONE (16:09)
--- NOTE | 2018-10-15 16:14 | UC ---
Cardiac HPI - HPI Summary HPI Summary: 73 yo female with chest pain that lasted one hour and resolved after arriving here Onset after gardening Has not felt well for days on chronic steroids for RA Hx of COPD and at her baseline dyspnea no weakness or near syncope Pain was 6-7/10 radiated to back and neck - History of Current Complaint Chief Complaint: UCChestPain Stated Complaint: CHEST CONGESTION Time Seen by Provider: 10/15/18 15:36 Hx Obtained From: Patient Onset/Duration: Sudden Onset, Lasting Minutes - 60 Timing: Constant Initial Severity: Moderate Current Severity: None Pain Intensity: 0 Chest Pain Location: Lower Sternal - wtih radiation to back and jaw Character: Tightness, Burning Alleviating Factor(s): Spontaneous Resolution Associated Signs & Symptoms: Positive: Chest Pain, Abdominal Pain - Heartburn and bloating lately. Past - Allergy/Home Medications Allergies/Adverse Reactions: Allergies Allergy/AdvReac Type Severity Reaction Status Date / Time Seasonal Allergies Allergy Intermediate Congestion Uncoded 10/15/18 15:44 Home Medications: Home Medications predniSONE [Prednisone 20 MG TAB] 10 mg PO DAILY 10/15/18 [History Confirmed ] PMH/Surg Hx/FS Hx/Imm Hx - Additional Past Medical History Additional PMH: RA on steroids for past 2 mos Previously Healthy: Yes Respiratory History: COPD - Surgical History Surgical History: Yes Surgery Procedure, Year, and Place: Hysterectomy, Lumpectomy x 2 left breast benign, face lift 2006 - Family History Known Family History: Positive: Hypertension - Social History Alcohol Use: None Substance Use Type: None Smoking Status (MU): Former Smoker When Did the Patient Quit Smoking/Using Tobacco: 11 yrs ago Review of Systems All Other Systems Reviewed And Are Negative: Yes Constitutional: Positive: Negative Skin: Positive: Negative Eyes: Positive: Negative ENT: Positive: Negative Respiratory: Positive: Shortness Of Breath - states she is at her baseline Cardiovascular: Positive: Chest Pain - Resolved Gastrointestinal: Positive: Other - abdominal bloating and dyspepsia Genitourinary: Positive: Negative Motor: Positive: Negative Neurovascular: Positive: Negative Musculoskeletal: Positive: Arthralgia - chronic Neurological: Positive: Negative Psychological: Positive: Negative Physical Exam Triage Information Reviewed: Yes Appearance: Well-Appearing, No Pain Distress, Well-Nourished Vital Signs: Initial Vital Signs Temp 97.9 F 10/15/18 15:36 Pulse 78 10/15/18 15:36 Resp 20 10/15/18 15:36 BP 115/67 10/15/18 15:36 Pulse Ox 93 10/15/18 15:36 Vital Signs Reviewed: Yes Eyes: Positive: Conjunctiva Clear ENT: Positive: Hearing grossly normal. Negative: Nasal congestion, Nasal drainage, Trismus, Muffled voice, Hoarse voice Dental: Negative: Gross Decay/Caries @, Dental Fracture @ Neck: Positive: Supple, Nontender Respiratory: Positive: Lungs clear, Normal breath sounds, No respiratory distress, No accessory muscle use Cardiovascular: Positive: RRR, No Murmur Abdomen Description: Negative: Nontender - tender epigastrium and RUQ Bowel Sounds: Positive: Present Musculoskeletal: Positive: ROM Intact, No Edema Neurological: Positive: Alert Psychological Exam: Normal Skin Exam: Normal Diagnostics - EKG Cardiac Rate: NL Cardiac Rhythm: Sinus: Normal Ectopy: None ST Segment: Normal - Assessment/Plan Course Of Treatment: Pt declines EMS. Arrive that despite her normal EKG this could be due to a cardiac event. She still desires work up for her symptoms and stated she will go to the ER via POV. She acknowledges risks of driving herself to the ER and has signed an AMA form D/W Dr Singleton - Clinical Impression Provider Diagnosis: Chest pain of uncertain etiology Discharge - Sign-Out/Discharge Documenting (check all that apply): Patient Departure All imaging exams completed and their final reports reviewed: No Studies - Discharge Plan Condition: Guarded Disposition: AGAINST MEDICAL ADVICE Referrals: Dana Cochran MD [Primary Care Provider] - Additional Instructions: please go directly to the ER for evaluation of your symptoms - Billing Disposition and Condition Condition: GUARDED Disposition: Against Medical Advice
== END 2018-10-15 16:20 | disposition left against medical advice (07) ==
LOC: UCEAST 15:32
DX: R07.89 Other chest pain (principal); J44.9 Chronic obstructive pulmonary disease, unspecified; M06.9 Rheumatoid arthritis, unspecified; Z87.891 Personal history of nicotine dependence
CPT/HCPCS: 99212; A9270-GY; G0463

== ENCOUNTER 2018-10-15 16:42 | Emergency (ER) | payer MEDICARE, MEDICAID ==
[2018-10-15 17:35] LABS: Hematocrit 47 % (35-47); Mean Corpuscular HGB Conc 34 g/dL (31-36); Mean Corpuscular Hemoglobin 32 pg (27-31); Mean Corpuscular Volume 94 fL (80-97); Mean Platelet Volume 7.7 fL (7.4-10.4); Platelet Count 243 10^3/uL (150-450); Red Cell Distribution Width 14 % (10.5-15); White Blood Count 8.9 10^3/uL (3.5-10.8)
[2018-10-15 17:47] LABS: Albumin 4.1 g/dL (3.2-5.2); Albumin/Globulin Ratio 1.5 (1-3); BUN/Creatinine Ratio 15.5 (8-20); Calcium 9.9 mg/dL (8.6-10.3); EGFR African American 68.1 (>60); EGFR Non-African American 56.3 (>60); Globulin 2.8 g/dL (2-4); Potassium 4.2 mmol/L (3.5-5.0); Total Bilirubin 0.7 mg/dL (0.2-1.0); Total Protein 6.9 g/dL (6.4-8.9)
[2018-10-15 17:52] LABS: CKMB ng/mL 2.5 ng/mL (0.6-6.3)
--- NOTE | 2018-10-15 17:54 | ED ---
HPI Chest Pain - HPI Summary HPI Summary: The patient is a 73 y/o F presenting to [facility] with a chief complaint of sudden onset anterior CP while at rest approximately 3 hours ago. She states she was outside gardening and then went inside to relax when the pain started. The sharp pain is not currently present, but she became worried when the pain started to radiate from her chest to her left ear. The pain is aggravated by deep breathing. She additionally states that her abdomen has been distended and rigid for a few days. She denies nausea, vomiting, and dizziness. She reports that she has chronic heart palpitations. - History of Current Complaint Chief Complaint: EDChestPainROMI Time Seen by Provider: 10/15/18 17:28 Hx Obtained From: Patient Onset/Duration: Started Hours Ago - three hours [place] Timing: Lasting Minutes Initial Severity: Moderate Current Severity: None Pain Intensity: 0 Pain Scale Used: 0-10 Numeric Chest Pain Location: Diffuse - anterior Chest Pain Radiates: Yes Chest Pain Radiates To:: Neck - left into neck Character: Sharp/Stabbing Aggravating Factor(s): Deep Breaths Alleviating Factor(s): Nothing Associated Signs and Symptoms: Positive: Chest Pain - resolved, Abdominal Pain - abdominal distention and rigidity. Negative: Dizziness, Nausea, Vomiting - Allergy/Home Medications Allergies/Adverse Reactions: Allergies Allergy/AdvReac Type Severity Reaction Status Date / Time Seasonal Allergies Allergy Intermediate Congestion Uncoded 10/15/18 16:50 PMH/Surg Hx/FS Hx/Imm Hx Endocrine/Hematology History: Reports: Hx Thyroid Disease - benign tumors Denies: Hx Diabetes, Hx Anemia Cardiovascular History: Reports: Hx Hypertension Respiratory History: Reports: Hx Asthma, Hx Chronic Obstructive Pulmonary Disease (COPD) GI History: Reports: Hx Ulcer - Gastric Ulcers age 22 Denies: Hx Jaundice - Surgical History Surgery Procedure, Year, and Place: Hysterectomy, Lumpectomy x 2 left breast benign, face lift 2007 Infectious Disease History: No Infectious Disease History: Denies: Hx Hepatitis, Hx Human Immunodeficiency Virus (HIV), Traveled Outside the [place] in Last 30 Days - Family History Known Family History: Positive: Hypertension - Social History Alcohol Use: None Hx Substance Use: No Substance Use Type: Reports: None Hx Tobacco Use: Yes Smoking Status (MU): Former Smoker Do You Chew or Dip Tobacco: No Review of Systems Positive: Chest Pain - anterior radiating into left ear (resolved) Positive: Abdominal Pain - distended abd, rigid abd. Negative: Vomiting, Nausea Neurological: Other - NEGATIVE: dizziness All Other Systems Reviewed And Are Negative: Yes Physical Exam - Summary Physical Exam Summary: VITAL SIGNS: Reviewed. GENERAL: Patient is a well-developed and nourished female who is lying comfortable in the stretcher. Patient is not in any acute respiratory distress. HEAD AND FACE: No signs of trauma. No ecchymosis, hematomas or skull depressions. No sinus tenderness. EYES: PERRLA, EOMI x 2, No injected conjunctiva, no nystagmus. EARS: Hearing grossly intact. Ear canals and tympanic membranes are within normal limits. MOUTH: Oropharynx within normal limits. NECK: Supple, trachea is midline, no adenopathy, no JVD, no carotid bruit, no c- spine tenderness, neck with full ROM. CHEST: Symmetric, no tenderness at palpation LUNGS: Clear to auscultation bilaterally. No wheezing or crackles. CVS: Regular rate and rhythm, S1 and S2 present, no murmurs or gallops appreciated. ABDOMEN: Soft, non-tender. No signs of distention. No rebound no guarding, and no masses palpated. Bowel sounds are normal. EXTREMITIES: FROM in all major joints, no edema, no cyanosis or clubbing. NEURO: Alert and oriented x 3. No acute neurological deficits. Speech is normal and follows commands. SKIN: Dry and warm Triage Information Reviewed: Yes Vital Signs On Initial Exam: Initial Vitals Temp Pulse Resp BP Pulse Ox 99.8 F 76 18 126/78 93 10/15/18 16:48 10/15/18 16:48 10/15/18 16:48 10/15/18 16:48 10/15/18 16:48 Vital Signs Reviewed: Yes Diagnostics - Vital Signs Vital Signs Temp Pulse Resp BP Pulse Ox 10/15/18 16:48 99.8 F 76 18 126/78 93 - Laboratory Lab Results: Lab Results 10/15/18 10/15/18 10/15/18 Range/Units 17:17 17:17 17:17 WBC 8.9 (3.5-10.8) 10^3/uL RBC 5.00 H (3.70-4.87) 10^6 /uL Hgb 16.0 (12.0-16.0) g/dL Hct 47 (35-47) % MCV 94 (80-97) fL MCH 32 H (27-31) pg MCHC 34 (31-36) g/dL RDW 14 (10.5-15) % Plt Count 243 (150-450) 10^3/uL MPV 7.7 (7.4-10.4) fL Neut % (Auto) Pending Lymph % (Auto) Pending [place] % (Auto) Pending Eos % (Auto) Pending Baso % (Auto) Pending Absolute Neuts (auto) Pending Absolute Lymphs (auto) Pending Absolute Monos (auto) Pending Absolute Eos (auto) Pending Absolute Basos (auto) Pending Absolute Nucleated RBC Pending Nucleated RBC % Pending INR (Anticoag Therapy) 1.00 (0.82-1.09) Sodium 138 (135-145) mmol/L Potassium 4.2 (3.5-5.0) mmol/L Chloride 100 L (101-111) mmol/L Carbon Dioxide 30 (22-32) mmol/L Anion Gap 8 (2-11) mmol/L BUN 15 (6-24) mg/dL Creatinine 0.97 H (0.51-0.95) mg/dL Est GFR ( Amer) 68.1 (>60) Est GFR (Non-Af Amer) 56.3 (>60) BUN/Creatinine Ratio 15.5 (8-20) Glucose 125 H (70-100) mg/dL Calcium 9.9 (8.6-10.3) mg/dL Total Bilirubin 0.70 (0.2-1.0) mg/dL AST 25 (13-39) U/L ALT 39 (7-52) U/L Alkaline Phosphatase 67 (34-104) U/L Total Creatine Kinase 82 (10-223) U/L CK-MB (CK-2) Pending Troponin I Pending Total Protein 6.9 (6.4-8.9) g/dL Albumin 4.1 (3.2-5.2) g/dL Globulin 2.8 (2-4) g/dL Albumin/Globulin Ratio 1.5 (1-3) TSH Pending Result Diagrams: 10/15/18 17:17 10/15/18 17:17 Lab Statement: Any lab studies that have been ordered have been reviewed, and results considered in the medical decision making process. - Radiology CXR Radiology Interpretation Completed By: Radiologist Summary of Radiographic Findings: No acute process. ED physician has reviewd this report. - EKG 16:53 Cardiac Rate: NL - 66 BPM EKG Rhythm: Sinus Rhythm EKG Comparison: No Significant Change - Similar to EKG on 08/30/04 Summary of EKG Findings: Nml axis, no ST elevations Re-Evaluation - Re-Evaluation First Eval Re-Evaluation Time: 20:40 Change: Improved Comment: I spoke with the patient concerning discharge home since she is asymptomatic. Chest Pain Course/Dx - Course Assessment/Plan: The patient is a 73 y/o F presenting to [facility] with a chief complaint of sudden onset anterior CP while at rest approximately 3 hours ago. She states she was outside gardening and then went inside to relax when the pain started. The sharp pain is not currently present, but she became worried when the pain started to radiate from her chest to her left ear. The pain is aggravated by deep breathing. She additionally states that her abdomen has been distended and rigid for a few days. She denies nausea, vomiting, and dizziness. She reports that she has chronic heart palpitations. Past medical history significant for rheumatoid arthritis, pulmonary edema, obstructive sleep apnea, restless leg syndrome, osteopenia, IBS, and thyroid nodule. EKG is a sinus rhythm at [address] elevations. In the ED course the patient was given an aspirin. Blood test results without any significant abnormality except for chloride 100, glucose is 125. Troponin is 0.00. Patient continues to be asymptomatic this point. Second troponin is 0.00. Therefore, I do not believe that the patient has a cardiomyopathy syndrome. Since the patient continues to be asymptomatic, the patient will be discharged home with follow-up with PCP. Heart score is only 2 therefore is low suspicion. I discussed all the findings and test results with the patient. Patient was instructed to return to the emergency room immediately if any of the symptoms return worsens. Plan of care was discussed with the patient and understands and agrees. All questions were answered at patient satisfaction. There were no further complaints or concerns. Lung exam before discharge: CTA B/L. Good air exchange. No wheezing or crackles heard. CVS: S1 and S2 present. No murmurs appreciated. Patient is alert and oriented x 3. Patient is hemodynamically stable. Patient will be discharged home with follow up PCP in the next 2-3 days. - Chest Pain Differential Diagnosis/HQI/PQRI: Acute MA, ACS, Angina, CHF, Chest Wall, GI Disease, Lower Respiratory Infection - Diagnoses Provider Diagnoses: Atypical chest pain, Chest pain Discharge - Sign-Out/Discharge Documenting (check all that apply): Patient Departure - Patient will be dsicharged home. Patient Received Moderate/Deep Sedation with Procedure: No - Discharge Plan Condition: Stable Disposition: HOME Patient Education Materials: Chest Pain (DC) Referrals: Dana Cochran MD [Primary Care Provider] - 3 Days Additional Instructions: FOLLOW UP WITH YOUR PRIMARY CARE PROVIDER WITHIN ONE WEEK. RETURN TO THE ED FOR ANY WORSENING OR NEW SYMPTOMS. - Billing Disposition and Condition Condition: STABLE Disposition: Home - Attestation Statements Document Initiated by Ari: Yes Documenting Scribe: Deya Rajan Provider For Whom Ari is Documenting (Include Credential): Dr. Erick Zhou MD Scribe Attestation: Deya Norris scribed for Dr. Erick Zhou MD on 10/16/18 at 2130. Scribe Documentation Reviewed: Yes Provider Attestation: The documentation as recorded by the Deya hay accurately reflects the service I personally performed and the decisions made by me, Dr. Erick Zhou MD Status of Scribaimee Document: Viewed
[2018-10-15 18:03] LABS: ABS Lymphocytes 2.1 10^3/ul (1.0-4.8); ABS Monocytes 0.4 10^3/ul (0-0.8); ABS Neutrophils 6.3 10^3/ul (1.5-7.7)
[2018-10-15 18:31] LABS: TSH (Thyroid Stimulating Horm) 0.66 mcIU/mL (0.34-5.60)
[2018-10-15] MEDS ORDERED: Aspirin 81 mg CHEW TAB* 81 MG TAB.CHEW PO ONE (19:43)
[2018-10-15 20:52] VITALS: BP 132/81
== END 2018-10-15 21:10 | disposition home or self-care (01) ==
LOC: ED 16:42
DX: R07.89 Other chest pain (principal); I10 Essential (primary) hypertension; J44.9 Chronic obstructive pulmonary disease, unspecified; Z87.891 Personal history of nicotine dependence; M06.9 Rheumatoid arthritis, unspecified
CPT/HCPCS: 36415; 71046; 80053; 82550; 82553; 84443; 84484; 85025; 85610; 93005; 99283; A9270-GY

== ENCOUNTER 2019-05-28 07:55 | Emergency (ER) | payer MEDICAID, MEDICARE ==
--- OUTSIDE RECORDS SUMMARY | 2019-05-28 08:02 | XMS REPORT | Summary of Care ---
:1945 Author Organization [facility] Address [address] [address] Care Team Providers Name Role Phone Ryan Huber MD Unavailable Vi Chen MD Unavailable Pancho Pérez Unavailable Pasha Saeed MD Unavailable Bry Ferguson MD Unavailable Landy Hunt Unavailable Landy Hunt Unavailable Landy Hunt Primary Care Provider Reason for Referral Diagnostic Testing (Routine) Status Reason Specialty Diagnoses / Referred By Referred To Procedures Contact Contact Pending Review Diagnoses SOB (shortness of breath) Giovanna Degroot PA Procedures DOBUTAMINE STRESS ECHO [address] [address] Reason for Visit Reason Comments Follow Up 6 mo ,CAESAR TALBERT Breathing Problem COPD however in the last X3 days it is worsening Chest Pain under left breast ,"couple days off and on" X3days Encounter Details Date Type Department Care Team Description 04/13/2019 Office Visit Giovanna Geiger PA SOB (shortness of breath) (Primary Dx); Cardiology [address] Palpitations; [address] [facility] [address] [address] Non-cardiac chest pain; [place] [address] Dyslipidemia; [phone] Essential hypertension Allergies Active Allergy Reactions Severity Noted Date Comments Nylon Dermatologic Reaction 12/29/2015 bp cuff made arm very red, itchy that was on for over an hour documented as of this encounter (statuses as of 04/13/2019) Medications Medication Sig Dispensed Refills Start Date End Date Status VENTOLIN HFA 108 (90 INHALE TWO PUFFS 18 Each 3 06/25/2016 Active BASE) MCG/ACT BY MOUTH EVERY 6 Inhalation Aero Soln HOURS NEEDED(RESCUE INHALER) amLodipine (NORVASC) Take 0.5 Tabs by 45 Tab 0 08/04/2018 08/04/2019 Active 5 MG Oral Tab mouth DAILY. citalopram (CELEXA) TAKE ONE TABLET 90 Tab 3 11/17/2018 Active 10 MG Oral BY MOUTH ONCE TabIndications: DAILY DIRECTED Depression, unspecified depression type Additional information Patient taking differently: Indications: patient takes on every other day, Reported on 04/13/2019 2:37 PM Omeprazole 40 MG Oral TAKE ONE CAPSULE BY 90 Cap 1 01/08/2019 Active CAPSULE DELAYED RELEASE MOUTH ONCE DAILY SYMBICORT 160-4.5 INHALE TWO PUFFS BY 10.2 g 5 02/03/2019 Active MCG/ACT Inhalation MOUTH TWICE A DAY Aerosol atorvastatin (LIPITOR) TAKE ONE TABLET BY 90 Tab 1 02/10/2019 Active 20 MG Oral MOUTH ONCE DAILY TabIndications: High DIRECTED cholesterol Spironolactone-HCTZ Take 0.5 Tabs by 45 Tab 1 03/16/2019 Active 25-25 MG Oral Tab mouth DAILY. gabapentin (NEURONTIN) 0 04/02/2019 Active 100 MG Oral Cap Omeprazole 40 MG Oral TAKE ONE CAPSULE BY 90 Cap 1 01/14/2019 04/13/2019 Discontinued CAPSULE DELAYED RELEASE MOUTH ONCE DAILY documented as of this encounter (statuses as of 04/13/2019) Active Problems Problem Noted Date Hyperparathyroidism 04/08/2019 Reactive depression 04/08/2019 Abnormal breast biopsy 06/26/2018 Overview: Left side twice - PHILL (obstructive sleep apnea) 03/01/2017 History of partial hysterectomy 05/30/2016 Overview: Still has ovaries Osteopenia 05/01/2016 Overview: dxa 05/11 - frax 19/3.4 Restless leg syndrome 03/07/2015 Fam hx-ischem heart disease 12/18/2011 Heart palpitations 12/18/2011 BMI 28.0-28.9,adult 10/16/2011 IBS (irritable bowel syndrome) 10/30/2010 COPD (chronic obstructive pulmonary disease) Back pain GERD (gastroesophageal reflux disease) High cholesterol Osteoarthritis Overview: MRI Cspine 04/09/19 - Degenerative disc disease and osteoarthritis. Mild narrowing of the central canal at c4-c5 and c5-c6. Multilevel neuroforaminal narrowing. Palpitations documented as of this encounter (statuses as of 04/13/2019) Resolved Problems Problem Noted Date Resolved Date Pulmonary emphysema 11/26/2016 02/13/2018 Overview: [place] [facility] [place] Sh[place]se[place] Sleep study winter - PFT are normal - documented as of this encounter (statuses as of 04/13/2019) Immunizations Name Administration Dates Next Due Influenza (IM) Preservative Free 06/06/2012 Influenza Vaccine 65 Yrs + 03/13/1984 Influenza Vaccine High Dose 02/13/2018, 04/04/2016 PNEUMOCOCCAL POLYSACCHARIDE VACCINE 01/13/2018 Pneumococcal Conjugate Vaccine 01/07/2017 documented as of this encounter Social History Tobacco Use Types Packs/Day Years Used Date Former Smoker Cigarettes 0.5 47 07/26/1961 - 10/30/2008 Smokeless Tobacco: Never Used Alcohol Use Drinks/Week oz/Week Comments No 0 Standard drinks or equivalent 0.0 Sex Assigned at Date Recorded Not on file Job Start Date Occupation Industry Not on file Not on file Not on file Travel History Travel Start Travel End No recent travel history available. documented as of this encounter Last Filed Vital Signs Vital Sign Reading Time Taken Comments Blood Pressure 108/64 04/13/2019 2:40 PM EST Pulse 71 04/13/2019 2:40 PM EST Temperature 35.6 04/13/2019 2:40 PM EST C (96 F) Respiratory Rate - - Oxygen Saturation 93% 04/13/2019 2:40 PM EST Inhaled Oxygen Concentration - - Weight 75.8 kg (167 lb) 04/13/2019 2:40 PM EST Height 157.5 cm (5' 2") 04/13/2019 2:40 PM EST Body Mass Index 30.54 04/13/2019 2:40 PM EST documented in this encounter Patient Instructions Patient InstructionsGiovanna Degroot PA - 04/13/2019 2:40 PM EST Wear a Holter Monitor Schedule a Stress Echocardiogram Follow up in 1-2 months, or sooner, if symptoms worsen documented in this encounter Progress Notes Giovanna Degroot PA - 04/13/2019 2:40 PM EST [facility] Note Patient: Elva Ash Date of : 1945 Date of Service: 04/13/2019 REFERRING PRACTITIONER: Self-Referred PRIMARY CARE PROVIDER: Landy Hunt Chief Complaint: Chief Complaint Patient presents with Follow Up 6 mo ,ASHD,SOB Breathing Problem COPD however in the last X3 days it is worsening Chest Pain under left breast ,"couple days off and on" X3days History of Present Illness: We had the pleasure of seeing Elva Ash today. She is a 73-y.o. 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 She is undergoing a workup with hyperparathy[place] with an cut off saw grader [place] [facility] [place] Since her last visit, she reports feeling increased shortness of breath, worse over the last couple of days. She walks around the mall or around [employer] everyday. In the last couple of days, she could walk 2 times around the mall and had to stop because of shortness of breath. Typically, she can walk 4times around the mall, and stops because hip pain. She has been having pain underneath her rib cage for the past couple days, as well. Pain occurs intermittently, and is not related to exertion. Pain lasts for a few minutes before passing on its own. The pain is reproducible to touch. She has palpitations on and off, where she feels like her heart is pounding hard. She has been having these for a while, but feels like they have been worsening lately. Denies lower extremity edema, orthopnea, vomiting Cardiac Studies: TTE 12/11/17: FINAL IMPRESSION: Mild concentric LVH with normal left atrial size. Normal LV systolic function with no regional wall motion abnormalities; estimated LVEF 55-60%. Mild right heart enlargement with normal RV systolic function. Mild aortic and mitral regurgitation. Mild to moderate tricuspid regurgitation. Estimated upper normal pulmonary arterial systolic pressure. No pericardial effusion. Coronary CTA 03/27/16: IMPRESSION: 1. Coronary atherosclerosis with both calcified and noncalcified plaque in the proximal and mid LAD respectively. The noncalcified mid LAD plaque is eccentric, with positive remodeling, but at most mild stenosis. 2. The calcium score is 23.5. 3. Left ventricular systolic function appears preserved. 24 Hour Holter 02/02/16: 1. 24-hour Holter monitor recording is essentially within normal limits, with very rare episodes of supraventricular ectopy as described above. 2. No clear cardiac rhythm explanation for patient's symptoms as noted. Exercise Stress Echo 02/01/16: Baseline Echocardiogram: This was a limited study for Stress Echo. Contrast agent Definity was used for enhanced endocardial definition. Mild concentric LVH with normal left atrial size. Normal LV systolic function with no regional wall motion abnormalities and estimated LVEF 55-60%. Mild right heart enlargement with normal RV systolic function. Mild tricuspid and aortic regurgitation. No pericardial effusion. FINAL IMPRESSION: Exercise tolerance of the patient is fair. Hypertensive response to exercise. This test is equivocal for ischemia by symptoms (limiting dyspnea), negative for ischemia by EKG, and negative for ischemia by echocardiographic imaging at an adequate cardiac workload, as described. Symptom dyspnea in the absence of EKG changes and echocardiographic evidence of ischemia most likely represents non-cardiac pathology, deconditioning and/or diastolic dysfunction from the hypertensive response to exercise. 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 Fractures GERD (gastroesophageal reflux disease) Headache disorder High cholesterol History of breast surgery hx left julio bx Osteoarthritis Other postprocedural status(V45.89) 2 julio left lumpectomy's Palpitations PONV (postoperative nausea and vomiting) IBS Postmenopausal Past Surgical History: Procedure Laterality Date COLONOSCOPY N/A 11/25/2015 Procedure: ABORTED COLONOSCOPY; Surgeon: Alejandra Madera MD; Location: [facility] MA[facility] OR COLONOSCOPY N/A 12/29/2015 Procedure: COLONOSCOPY; Surgeon: Alejandra Madera MD; Location: [facility] MAIN OR EGD N/A 11/25/2015 Procedure: ENDOSCOPY UPPER GI WITH BIOPSY; Surgeon: Alejandra Madera MD; Location: [facility] MAIN OR PHACOEMULSIFICATION WITH INTRA OCULAR LENS 02/19/2011 Procedure:PHACOEMULSIFICATION WITH INTRA OCULAR LENS; Surgeon:SHASTA WHITEHEAD ; Location:[facility]; Laterality:Right PHACOEMULSIFICATION WITH INTRA OCULAR LENS 03/26/2011 Procedure:PHACOEMULSIFICATION WITH INTRA OCULAR LENS; Surgeon:SHASTA WHITEHEAD; Location:[facility]; Laterality:Left MI MASTECTOMY, SIMPLE, COMPLETE Left Actually had partial mastectomy for benign tumors MI TOTAL ABDOM HYSTERECTOMY partial, still has ovaries TONSILLECTOMY Allergies Allergen Reactions Nylon Dermatologic Reaction bp cuff made arm very red, itchy that was on for over an hour Current Outpatient Medications Medication Sig amLodipine (NORVASC) 5 MG Oral Tab Take 0.5 Tabs by mouth DAILY. atorvastatin (LIPITOR) 20 MG Oral Tab TAKE ONE TABLET BY MOUTH ONCE DAILY DIRECTED citalopram (CELEXA) 10 MG Oral Tab TAKE ONE TABLET BY MOUTH ONCE DAILY DIRECTED (Patient taking differently: Indications: patient takes on every other day) gabapentin (NEURONTIN) 100 MG Oral Cap Omeprazole 40 MG Oral CAPSULE DELAYED RELEASE TAKE ONE CAPSULE BY MOUTH ONCE DAILY Spironolactone-HCTZ 25-25 MG Oral Tab Take 0.5 Tabs by mouth DAILY. SYMBICORT 160-4.5 MCG/ACT Inhalation Aerosol INHALE TWO PUFFS BY MOUTH TWICE A DAY VENTOLIN HFA 108 (90 BASE) MCG/ACT Inhalation Aero Soln INHALE TWO PUFFS BY MOUTH EVERY 6 HOURS NEEDED(RESCUE INHALER) No current facility-administered medications for this visit. Family History Problem Relation Age of Onset Breast Cancer Maternal Aunt dx in her 30s Heart Mother 67 [place] Alcohol/Drug Father Alcoholic Seizures Father Seizures r/t DTs Heart Brother [place] and CABG Heart Brother [place], CABG, PCI Aneurysm Brother AAA Arthritis Brother RA in lungs Respiratory Brother RA in lungs Cancer Brother Renal cancer, chemo Heart Brother [place], CABG Aneurysm Brother AAA Heart Brother CHF COPD Sister Heart Sister CHF Diabetes Sister Heart Son 44 in his sleep; presumed [place] Heart Other 62 Amyloidosis No Known Problems Son No Known Problems Daughter Breast Cancer Other at 52 /dx ? Social History Socioeconomic History Marital status: Spouse name: Not on file Number of children: Not on file Years of education: Not on file Highest education level: Not on file Occupational History Not on file Social Needs Financial resource strain: Not on file Food insecurity: Worry: Not on file Inability: Not on file Transportation needs: Medical: Not on file Non-medical: Not on file Tobacco Use Smoking status: Former Smoker Packs/day: 0.50 Years: 47.00 Pack years: 23.50 Types: Cigarettes Start date: 07/26/1961 Last attempt to quit: 10/30/2008 Years since quittin.4 Smokeless tobacco: Never Used Substance and Sexual Activity Alcohol use: No Alcohol/week: 0.0 standard drinks Drug use: No Sexual activity: Not on file Lifestyle Physical activity: Days per week: Not on file Minutes per session: Not on file Stress: Not on file Relationships Social connections: Talks on phone: Not on file Gets together: Not on file Attends pres[employer]ian service: Not on file Active member of club or organization: Not on file Attends meetings of clubs or organizations: Not on file Relationship status: Not on file Intimate partner violence: Fear of current or ex partner: Not on file Emotionally abused: Not on file Physically abused: Not on file Forced sexual activity: Not on file Other Topics Concern Back Care Not Asked Bike Helmet Not Asked Blood Transfusions Not Asked Caffeine Concern Not Asked Exercise Not Asked Hobby Hazards Not Asked International Travel Not Asked Service Not Asked Occupational Exposure Not Asked Seat Belt Not Asked Self-Exams Not Asked Sleep Concern Not Asked Special Diet Not Asked Stress Concern Not Asked Weight Concern Not Asked Social History Narrative Lives alone Has 2 adult children 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 Denies fatigue. NEUROLOGIC: Denies transient ischemic attackor cerebrovascular accident signs or symptoms. Denies syncope or presyncopal episodes. CARDIOVASCULAR: + nonanginal chest pain, + palpations, denies edema. RESPITATORY: + shortness of breath, denies orthopnea. GASTROINTESTINAL: Denies melena. GENITOURINARY: Denies hematura or nocturia. MUSCULOSKELETAL: + claudication. All other remaining systems are negative. Except that stated above in history of present illness Physical Exam: Vitals: 04/13/19 1440 BP: 108/64 BP Location: Right arm Patient Position: Sitting Pulse: 71 Temp: 96 F (35.6 C) TempSrc: Tympanic SpO2: 93% Weight: 167 lb (75.8 kg) Height: 5' 2" (1.575 m) Body mass index is 30.54 kg/m. General: Well nourished, alert 73-y.o. female in NAD HEENT: anicteric, MMM, no E/E OP, conj pink Neck: No carotid bruits CV: RRR, normal s1/s2, no appreciable murmurs, rubs, or gallops. +TTP over left ribs Pulm: CTA bilaterally without wheezes, rhonchi, or rales. No increased work of breathing. Abd: soft, NT, ND, +BS. No appreciable pulsatile masses or bruits. Ext: No lower extremity edema, no cyanosis, no cords, redness, or warmth, 2+ distal pulses Neuro: no gross focal deficits Skin: no visible lesions Labs: Lab Results Component Value Date NA 137 08/18/2018 K 3.8 08/18/2018 CL 99 08/18/2018 CO2 25 08/18/2018 GLUCOSE 99 08/18/2018 BUN 14 08/18/2018 CREATININE 0.8 08/18/2018 CALCIUM 10.3 (H) 08/18/2018 TP 8.4 (H) 06/20/2018 ALBUMIN 4.8 06/20/2018 AST 46 06/20/2018 ALT 64 (H) 06/20/2018 ALK 86 06/20/2018 TBILI 1.0 06/20/2018 EGFR >60 08/18/2018 No results found for: BNP Lab Results Component Value Date CHOL 170 10/28/2017 TRIG 119 10/28/2017 HDL 86 10/28/2017 LDL 60 10/28/2017 LDLHDLRATIO 0.7 10/28/2017 CHOLHDLRATIO 2.0 10/28/2017 Assessment & Plan: Elva Ash is a 73-y.o. female with a very strong family history of premature CAD, palpitations, PHILL on CPAP, and dyspnea on exertion. Coronary CTA showed mild, nonobstructive CAD in the LAD. She also has rheumatoid arthritis. ICD-9-CM ICD-10-CM 1. SOB (shortness of breath) 786.05 R06.02 DOBUTAMINE STRESS ECHO 2. Palpitations 785.1 R00.2 HOLTER MONITOR 24-48 HOURS 3. Non-cardiac chest pain 786.59 R07.89 4. Dyslipidemia 272.4 E78.5 5. Essential hypertension 401.9 I10 1. Acute on Chronic COLORADO: Her [place] is chronic for her 2/2 COPD and diastolic dysfunction. However, shefeels it has been progressively worsening, despite appearing clinically euvolemic at this time. Will proceed as follows: Will order her a dobutamine stress echo to rule out any progression in her CAD. I counseled her on the importance of a low sodium diet and the importance of compliance on her cpap. 2. Nonobstructive CAD/ASCVD Risk: The 10-year ASCVD risk score (Albion DC Jr., et al., 2013) is: 11.8% Values used to calculate the score: Age: 73 years Sex: Female Is Non- : No Diabetic: No Tobacco smoker: No Systolic Blood Pressure: 108 mmHg Is BP treated: Yes HDL Cholesterol: 86 mg/dL Total Cholesterol: 170 mg/dL Cont atorvastatin 20mg daily. LDL was 60 in October,. She is getting it re-checked by her PCP. Cont 81mg ASA daily. Her chest pain is unrelated to exertion and tender to palpation, and therefore does not seem cardiac in nature. 3. Palpitations: Reports worsening in her symptoms lately Will re-check a Holter monitor Will check electrolytes when she returns for lipid profile 4. Hypertension: Blood pressure is well controlled today Continue Norvasc 2.5mg daily, Aldactazide 12.5-12.5mg Thank you for allowing me to participate in the care of Elva Ash. We will plan on f/u in our office in 2 months or sooner prn. If you have any questions or concerns please feel free to call ouroffice. DEDE Nuñez, 04/13/2019, 15:30 documented in this encounter Plan of Treatment Date Type Specialty Care Team Description 04/16/2019 Lab Internal Medicine 04/30/2019 Nurse/Clinical Support Internal Medicine 05/04/2019 Ancillary Procedure Radiology 05/04/2019 Ancillary Procedure Radiology 05/04/2019 Chronic Care Management Family Practice 05/11/2019 Orders Only Cardiology 07/09/2019 Office Visit Family Practice Landy Hunt, SRIDEVI [address] [address] [phone] Name Type Priority Associated Diagnoses Order Schedule DOBUTAMINE STRESS ECHO CV Lab Routine SOB (shortness of breath) Expected: 04/13/2019, Expires: 05/17/2020 HOLTER MONITOR 24-48 EKG Routine Palpitations Expected: 04/13/2019, HOURS Expires: 05/17/2020 MAGNESIUM LEVEL Lab Routine Palpitations Expected: 04/13/2019 (Approximate), Expires: 04/13/2020 Health Maintenance Due Date Last Done Comments ZOSTER IMMUNIZATION SERIES 08/23/1995 (1 of 2) MEDICARE ANNUAL WELLNESS 01/13/2019 01/13/2018, 01/07/2017, VISIT 12/23/2012, Additional history exists INFLUENZA VACCINE (#1) 2019 02/13/2018, 04/04/2016, 06/06/2012, Additional history exists DEPRESSION SCREENING 01/08/2020 01/07/2019 FALL RISK ASSESSMENT 01/08/2020 01/07/2019, 01/07/2019 LIPID DISORDER SCREENING 02/11/2020 02/10/2019, 10/28/2017, 04/18/2016, Additional history exists MAMMOGRAM (SCREENING) 04/08/2020 04/08/2019, 09/09/2017, 06/06/2016, Additional history exists COLONOSCOPY SCREENING 12/28/2025 12/29/2015, 12/29/2015, 11/25/2015, Additional history exists OSTEOPOROSIS SCREENING 10/10/2028 10/10/2018, 04/11/2016 PNEUMOCOCCAL 65+YRS Completed 01/13/2018, 01/07/2017 HPV IMMUNIZATION SERIES Aged Out No longer eligible based on patient's age to complete this topic MENINGOCOCCAL VACCINE IMM Aged Out No longer eligible based on patient's age to complete this topic documented as of this encounter Goals Goal Patient Goal Associated Recent Patient-Stated? Author Type Problems Progress Blood Pressure Blood Pressure 108/64 No Dimas, < 150/90 (04/13/2019 MD Dana 2:40 PM EST) Note: This is an individualized treatment (blood pressure) goal for Elva Ash: Displayed above (on the left) is your goal for blood pressure control. Your most recent blood pressure is also shown above, on the right. You should try to achieve blood pressures that are lower than your goal listed above (on the left). Depression screen (PHQ-9) total score < 5 Depression No Dana Cochran MD Note: This is an individualized treatment (depression) goal for Elva Ash: Displayed above is your goal for a depression screening (PHQ-9) score that would indicate good control of your depression. Keep a regular sleep schedule Lifestyle Dana Quan MD Note: This is an individualized lifestyle goal for Elva Ash: Please maintain a regular sleep schedule. This may help with some symptoms of depression. Keep immunizations current Lifestyle Dana Quan MD Note: This is an individualized lifestyle goal for Elva Ash: Please be sure to keep up-to-date on recommended immunizations. For example, this would include a yearly influenza vaccine. Immunization status can be seen by looking at the Health Maintenance sections of your e[facility], Plan of Care, and any After Visit Summaries. Weight loss vs. 18 mo Lifestyle 10 (04/13/2019 2:40 PM EST) No Dana Cochran MD max (lbs) >= 10 Note: This is an individualized lifestyle goal for Elva Ash: Your body mass index (BMI) is more than 30. You should lose weight. A reasonable starting goal is to lose 10 pounds. Displayed above is how many pounds you have lost thus far towards your 10 pound weight loss goal. Take all prescribed medications as directed Self-management Dana Quan MD Note: This is an individualized self-management goal for Elva Ash: Please take all prescribed medications as directed. 1. Do not skip doses. If you cannot afford your medications, talk with your doctor. 2. Use a pill reminder system such as a pill box if needed. Your pharmacist can help you with this. 3. Contact your Pharmacy 5 days before your medication runs out. If you cannot take your medications for any reasons, talk with your doctor. 4. Please bring all of your medication bottles and inhalers (or a list of all your medications/inhalers) with you to every visit. Potential barriers to meeting all of your care plan goals will continue to be addressed on an ongoing basis. documented as of this encounter Implants Implanted Type Area Education And Outreach Coordinator Device Shelf Model / Serial Identifier Expiration Date / Lot Iol, [id number] 22.0 Diopter - [id number] Right: STORZ 08/26/2015 [id number] 22.0D / Implanted: Qty: 1 on 02/19/2011 at [facility] Eye [id number] / Iol, [id number] 21.5 Diopter - [id number] Left: Eye STORZ 08/26/2015 [id number] / Implanted: Qty: 1 on 03/26/2011 at [facility] [id number] / documented as of this encounter Results Not on filedocumented in this encounter Visit Diagnoses Diagnosis SOB (shortness of breath) - Primary Shortness of breath Palpitations Non-cardiac chest pain Other chest pain Dyslipidemia Other and unspecified hyperlipidemia Essential hypertension Unspecified essential hypertension documented in this encounter (Home) [place], [place] [phone] (Work) documented as of this encounter
--- OUTSIDE RECORDS SUMMARY | 2019-05-28 08:02 | XMS REPORT | Continuity of Care Document ---
:1945 External Reference #:[id number] Author Name Ryan Martin, DO Address [address] [place] [id number] Care Team Providers Name Role Phone Vi Chen MD Care Team Information Farm Operations Manager [phone] Dana Cochran MD Care Team Information Farm Operations Manager [phone] Problems Description No Information Available Social History Type Date Description Comments Sex Unknown Tobacco Use Start: Unknown End: Unknown Patient is a former smoker Smoking Status Reviewed: 02/02/19 Patient is a former smoker Allergies, Adverse Reactions, Alerts Description No Known Drug Allergies Medications Active Medications SIG Qnty Indications Ordering Provider Date Atorvastatin Calcium Unknown 20mg Tablets Aspirin 1 by mouth every Unknown 81mg Tablets day Citalopram Hydrobromide Unknown 10mg Tablets Symbicort Dana Cochran MD 160-4.5mcg/Act Aerosol Tramadol HCL Billy Robin MD 50mg Tablets Amlodipine Besylate Dana Cochran MD 5mg Tablets Albuterol Sulfate HFA Unknown 108(90Base) mcg/Act Aerosol Omeprazole 1 by mouth every Unknown 40mg Capsules day Immunizations Description No Information Available Vital Signs Date Vital Result Comment 02/02/2019 2:49pm Height 62 inches 5'2" Weight 167.00 lb BP Systolic 111 mmHg BP Diastolic 72 mmHg Heart Rate 81 /min BMI (Body Mass Index) 30.5 kg/m2 06/09/2018 1:00pm Height 62 inches 5'2" Weight 159.00 lb BP Systolic 120 mmHg BP Diastolic 75 mmHg Heart Rate 69 /min BMI (Body Mass Index) 29.1 kg/m2 Results Test Acquired Date Facility Test Result H/L Range Note [place] 02[place] [facility] [place]ULT 1 finding Pathology Order BELOW Laboratory test 02/12/2019 [facility] [place] SEE RESULT 2 finding BELOW Lab Results 01/28/2019 N2N/CCD Import Erythrocyte Sed 13 mm/Hr 0-29 Rate C Reactive Protein < 1.00 mg/L CBC Auto Diff 01/28/2019 N2N/CCD Import White Blood Count 6.2 10^3/uL 3.5-10.8 Red Blood Count 5.05 10^6/uL High 3.70-4.87 Hemoglobin 16.4 g/dL High 12.0-16.0 Hematocrit 46 % 35-47 Mean Corpuscular Volume 92 fL 80-97 Mean Corpuscular Hemoglobin 33 pg High 27-31 Mean Corpuscular HGB Conc 36 g/dL 31-36 Red Cell Distribution Width 13 % 10-15 Platelet Count 166 10^3/uL 150-450 Mean Platelet Volume 8.3 fL 7.4-10.4 Abs Neutrophils 3.6 10^3/uL 1.5-7.7 Abs Lymphocytes 2.1 10^3/uL 1.0-4.8 Abs Monocytes 0.5 10^3/uL 0-0.8 Abs Eosinophils 0.1 10^3/uL 0-0.6 Abs Basophils 0.0 10^3/uL 0-0.2 Abs Nucleated RBC 0.0 10^3/uL Granulocyte % 57.3 % Lymphocyte % 33.2 % Monocyte % 8.0 % Eosinophil % 1.0 % Basophil % 0.5 % Nucleated Red Blood Cells % 0.1 1 Lab Results 01/28/2019 N2N/CCD Import Sodium 139 mmol/L 135-145 Potassium 3.7 mmol/L 3.5-5.0 Chloride 104 mmol/L 101-111 Co2 Carbon Dioxide 28 mmol/L 22-32 Anion Gap 7 mmol/L 2-11 Glucose 93 mg/dL 70-100 Blood Urea Nitrogen 11 mg/dL 6-24 Creatinine 0.91 mg/dL 0.51-0.95 BUN/Creatinine Ratio 12.1 1 8-20 Calcium 9.9 mg/dL 8.6-10.3 Total Protein 6.6 g/dL 6.4-8.9 Albumin 4.6 g/dL 3.2-5.2 Globulin 2.0 g/dL 2-4 Albumin/Globulin Ratio 2.3 1 1-3 Total Bilirubin 1.00 mg/dL 0.2-1.0 Alkaline Phosphatase 78 U/L 34-104 Alt 39 U/L 7-52 Ast 31 U/L 13-39 Egfr Non- 60.6 1 Egfr 73.3 1 3 Protein 01/28/2019 N2N/CCD Import Total Protein(Pep) 6.9 g/dL 6.3-7.9 Electrophoresis Albumin 3.7 g/dL 3.4-4.7 Alpha-1 Globulin 0.3 g/dL 0.1-0.3 Alpha-2 Globulin 0.8 g/dL 0.6-1.0 Beta Globulin 1.2 g/dL 0.7-1.2 Gamma Globulin 0.8 g/dL 0.6-1.6 Albumin/Globulin Ratio 1.18 1 Impression See Comment 4 Lab Results 01/28/2019 N2N/CCD Import PTH Intact 109.7 pg/mL High 12-88 Calcium (PTH Intact) 10.1 mg/dL 8.6-10.3 CMP(!) 12/05/2018 [facility] Sodium(!) <pending> Potassium(!) <pending> Chloride Serum/Plasma(!) <pending> Carbon Dioxide Ser/Plasm(!) <pending> BUN - Urea Nitrogen(!) <pending> Calcium Ser/Plasma Mass/Vol(!) <pending> Creatinine Serum Mass/Vol(!) <pending> Glucose Serum(!) <pending> BUN/Creatinine Ratio(!) <pending> Albumin Serum/Plasma(!) <pending> Alkaline Phosphatase(!) <pending> Bilirubin Total Mass/Vol(!) <pending> Ast - Sgot <pending> Alt - SGPT <pending> Protein Total <pending> Laboratory test 12/05/2018 [facility] C-Reative Protein <pending> finding CBC W/Auto 12/05/2018 [facility] White Blood Count <pending> Differential(!) Ser Auto CNT RBC Red Blood Count <pending> Hemoglobin Blood <pending> Hematocrit <pending> MCV (Corpuscular Volume) <pending> MCH (Corpuscular Hemoglobin) <pending> MCHC (Corpuscular Hemog Conc) <pending> RDW <pending> Platelet Count Blood Auto CNT <pending> MPV <pending> Lymph% <pending> Kay% <pending> Neutrophil % <pending> Absolute Lymphocytes <pending> Absolute Monocytes <pending> Absolute Neutrophils <pending> Laboratory test 12/05/2018 [facility] TSH Thyroid Stim <pending> finding Hormone(!) 1 SEE RESULT BELOW Name: MOHIT ASH : [address]: Ryan Martin DO Acct: [id number] Unit: [id number] AGE: 73 Location: ENDO Re02/12/19 SEX: F Status: DEP REF SPEC: [id number] ARABELLA: 02/12/19-[address] [facility] [address]: Ryan Martin DO REQ: [id number] RECD: 02/12/19 STATUS: SOUT _ ORDERED: LEVEL 4/2 FINAL DIAGNOSIS 1. Esophagus, distal, biopsy: -- Benign squamous and columnar-type mucosa with chronic inflammation. -- Intestinal metaplasia is absent. -- Dysplasia is absent. -- No evidence of eosinophilic esophagitis. -- No evidence of fungal organisms. 2. Esophagus, mid, biopsy: -- Benign squamous mucosa with mild erosive changes. -- No evidence of eosinophilic esophagitis. -- No evidence of fungal organisms. CLINICAL HISTORY Gastroesophageal reflux disease; dysphagia PRE-OPERATIVE DIAGNOSIS 1) Rule out Smith???s esophagus, 2) rule out josue and eosinophilic esophagitis POST-OPERATIVE DIAGNOSIS EGD: esophagus ??? mild trachealization; white mucus; biopsy mid and distal; gastric ??? gastritis biopsy; duodenum - normal GROSS DESCRIPTION 1. The specimen is received in formalin labeled, Biopsy Distal Esophagus, and consists of a 0.4 by up to 0.3 x 0.1 cm white-pink irregular soft tissue fragment which is submitted entirely in one cassette. CONTINUED ON NEXT PAGE DEPARTMENT OF PATHOLOGY, [address] [place] [address] Nhan Ruiz M.D. Director [facility] # [id number] 2. The specimen is received in formalin labeled, Biopsy Mid Esophagus, and consists of a 0.3 x 0.2 x 0.1 cm mcdermott-white irregular soft tissue fragment which is submitted entirely in one cassette. Signed by and Reported on: Landy Diaz MD 02/13/19 1639 END OF REPORT DEPARTMENT OF PATHOLOGY, [address] [place] [id number] Nhan Ruiz M.D. Director [facility] # [id number] 2 SEE RESULT BELOW Name: MOHIT ASH : [address]: Ryan Martin DO Acct: [id number] Unit: [id number] AGE: 73 Location: ENDO Re02/12/19 SEX: F Status: REG REF SPEC: [id number] ARABELLA: 02/12/19-[address] [facility] [address]: Ryan Martin DO REQ: [id number] RECD: 02/12/19-1230 STATUS: PUSHPA RODRIGUEZ DR: Leah Primary Care Phys,NOPCP _ SOURCE: GAS ANTRUM SPDESC: ORDERED: Clotest Procedure Result Reported Site Clotest Final 02/13/19736 ML Clotest Negative * ML - Main Lab . END OF REPORT DEPARTMENT OF PATHOLOGY, [address] [place] [address] Nhan Ruiz M.D. Director [facility] # [id number] 3 Because ethnic data is not always readily [...] 15-29 5 Kidney failure <15 (or dialysis) 4 RESULT: No apparent monoclonal protein on serum electrophoresis. Test Performed by: [facility] [address] [place] [address] Incoming Inspector: Rayshawn Escobedo M.D. Ph.D.; CLIA# [id number] Procedures Date Code Description Status 02/12/2019 54917 EGD+Biopsy Single Or Multiple Completed Medical Devices Description No Information Available Encounters Description No Information Available Assessments Date Code Description Provider 02/12/2019 K21.9 Gastro-esophageal reflux disease without Ryan Mario, DO esophagitis 02/12/2019 R13.10 Dysphagia, unspecified Ryan Mario, DO 02/12/2019 K29.70 Gastritis, unspecified, without bleeding Ryan Mario, DO 02/02/2019 R10.12 Left upper quadrant pain Ryan Mario, DO 02/02/2019 R13.10 Dysphagia, unspecified Ryan Mario, DO 02/02/2019 R19.4 Change in bowel habit Ryan Mario, DO Plan of Treatment No Information Available Functional Status Description No Information Available Mental Status Description No Information Available Referrals Description No Information Available
--- OUTSIDE RECORDS SUMMARY | 2019-05-28 08:02 | XMS REPORT | Summary of Care ---
:1945 Author Organization [facility] Address [address] [facility] [place] [address] Care Team Providers Name Role Phone Ryan Huber MD Unavailable Vi Chen MD Unavailable Pancho éPrez Unavailable Pasha Saeed MD Unavailable Bry Ferguson MD Unavailable Landy Hunt Unavailable Landy Hunt Unavailable Landy Hunt Primary Care Provider Reason for Referral Refer to Department Only (Routine) Status Reason Specialty Diagnoses / Referred By Referred To Procedures Contact Contact Authorized FAMILY PRACTICE / Diagnoses Screening for breast cancer Family Ronak Hunt NP [address] [place] [address] Reason for Visit Reason Comments Establish Care establish from Dr. Cochran Encounter Details Date Type Department Care Team Description 04/08/2019 Office Visit Catalina Hunt Encounter to establish care ( Primary Dx); Ronak Bill NP Screening for breast cancer; [address] Screening for diabetes mellitus; [place] [address] [place] Screening for lipid disorders; [phone] Hyperparathyroidism (HCC); [phone] Reactive depression; [phone] Chronic obstructive pulmonary disease, unspecified COPD type ([facility]) (Fax) Allergies Active Allergy Reactions Severity Noted Date Comments Nylon Dermatologic Reaction 12/29/2015 bp cuff made arm very red, itchy that was on for over an hour documented as of this encounter (statuses as of 04/08/2019) Medications Medication Sig Dispensed Refills Start Date End Date Status VENTOLIN HFA 108 (90 INHALE TWO 18 Each 3 06/25/2016 Active BASE) MCG/ACT PUFFS BY Inhalation Aero Soln MOUTH EVERY 6 HOURS NEEDED(RESCUE INHALER) amLodipine (NORVASC) 5 Take 0.5 Tabs 45 Tab 0 08/04/2018 08/04/19 Active MG Oral Tab by mouth 20 DAILY. citalopram (CELEXA) 10 TAKE ONE 90 Tab 3 11/17/2018 Active MG Oral TabIndications: TABLET BY Depression, unspecified MOUTH ONCE depression type DAILY DIRECTED Omeprazole 40 MG Oral TAKE ONE 90 Cap 1 01/08/2019 Active CAPSULE DELAYED RELEASE CAPSULE BY MOUTH ONCE DAILY Omeprazole 40 MG Oral TAKE ONE 90 Cap 1 01/14/2019 Active CAPSULE DELAYED RELEASE CAPSULE BY MOUTH ONCE DAILY SYMBICORT 160-4.5 INHALE TWO 10.2 g 5 02/03/2019 Active MCG/ACT Inhalation PUFFS BY Aerosol MOUTH TWICE A DAY atorvastatin (LIPITOR) TAKE ONE 90 Tab 1 02/10/2019 Active 20 MG Oral TABLET BY TabIndications: High MOUTH ONCE cholesterol DAILY DIRECTED Spironolactone-HCTZ Take 0.5 Tabs 45 Tab 1 03/16/2019 Active 25-25 MG Oral Tab by mouth DAILY. Aspirin 81 MG Oral Tab Take 81 mg by 0 04/08/20 Discontinued mouth DAILY. 19 pneumococcal Inject 0.5 mL 1 vial 0 01/13/2018 04/08/20 Discontinued polysaccharide within a 19 (PNEUMOVAX,PPSV23) 25 muscle ONE MCG/0.5ML Injection TIME. Injection Spironolactone-HCTZ Take 0.5 Tabs 45 Tab 0 08/04/2018 04/08/20 Discontinued 25-25 MG Oral by mouth 19 TabIndications: SOB DAILY. (shortness of breath) predniSONE (DELTASONE) TAKE THREE 30 Tab 1 09/01/2018 04/08/20 Discontinued 5 MG Oral Tab TABLETS BY 19 MOUTH EVERY DAY dicyclomine (BENTYL) 10 TAKE ONE 120 Cap 3 09/12/2018 04/08/20 Discontinued MG Oral CapIndications: CAPSULE BY 19 LUQ pain MOUTH FOUR TIMES A DAY hydroxychloroquine 0 10/28/2018 04/08/20 Discontinued (PLAQUENIL) 200 MG Oral 19 Tab documented as of this encounter (statuses as of 04/08/2019) Active Problems Problem Noted Date Hyperparathyroidism 04/08/2019 Reactive depression 04/08/2019 Abnormal breast biopsy 06/26/2018 Overview: Left side twice - PHILL (obstructive sleep apnea) 03/01/2017 History of partial hysterectomy 05/30/2016 Overview: Still has ovaries Osteopenia 05/01/2016 Overview: dxa 05/11 - frax 3.4 Restless leg syndrome 03/07/2015 Fam hx-ischem heart disease 12/18/2011 Heart palpitations 12/18/2011 BMI 28.0-28.9,adult 10/16/2011 IBS (irritable bowel syndrome) 10/30/2010 COPD (chronic obstructive pulmonary disease) Back pain GERD (gastroesophageal reflux disease) High cholesterol Osteoarthritis Palpitations documented as of this encounter (statuses as of 04/08/2019) Resolved Problems Problem Noted Date Resolved Date Pulmonary emphysema 11/26/2016 02/13/2018 Overview: Ct scan _ [facility] - Shows emphysema Sleep study winter - PFT are normal - documented as of this encounter (statuses as of 04/08/2019) Immunizations Name Administration Dates Next Due Influenza [...] Sign Reading Time Taken Comments Blood Pressure 118/54 04/08/2019 1:02 PM EST Pulse 71 04/08/2019 1:02 PM EST Temperature - - Respiratory Rate - - Oxygen Saturation 98% 04/08/2019 1:02 PM EST Inhaled Oxygen Concentration - - Weight 74.6 kg (164 lb 6.4 oz) 04/08/2019 1:02 PM EST Height 154.9 cm (5' 1") 04/08/2019 1:02 PM EST Body Mass Index 31.06 04/08/2019 1:02 PM EST documented in this encounter Patient Instructions Patient InstructionsLandy Hunt NP - 04/08/2019 1:00 PM ESTMammogram today. Get on the waiting list at the pharmacy for the Shingrix vaccine. Schedule fasting labs. Schedule Annual Wellness Visit. Take the Symbicort inhaler twice daily. Albuterol inhaler as needed for shortness of breath. Celexa - Take every other day for 1-2 weeks, see how you feel. If doing well, can stop at that point. Please follow up in 3 months. documented in this encounter Progress Notes Landy Hunt NP - 04/08/2019 1:00 PM EST PATIENT: Elva Ash : 1945 DATE OF SERVICE: 04/08/2019 CHIEF COMPLAINT: Chief Complaint Patient presents with Establish Care establish from Dr. Cochran Subjective HISTORY OF PRESENT ILLNESS: Elva Ash is a 73-y.o. female. HPI Here to establish care, previous Dr. Cochran. No problems or concerns today. Testing done with Dr. Huber for hyperparathyroidism. Has been seeing Dr. Robin thought was RA, but was having pain "all over" bones , not just in joints. On further testing, found elevated calcium and PTH - sent to Dr. Huber for further testing. 04/07 - testing yesterday, +hyperparathyroid, new nodules on thyroid. Had low suspicious nodules last year with negative biopsies. She last saw Dr. Pérez in July 2018 For shortness of breath, mild CAD, follow up in 6 months. Chronic neck pain, has MRI scheduled tomorrow. Mammogram (40-75): Last year, normal compared to year before. - scheduled for today. She had two malignant masses removed from left breast several years ago. DEXA (65+): Osteopenia - Had infusion at the hospital [address] Robin - Zolendronic Acid Infusion. Will get once a year. Colonoscopy (50-75): 12/2015 - diverticulosis, internal hemorrhoids, repeat in 10 years. Eye Exam: A year ago, age related vision changes, wears glasses. Dental Exam: Not in years, 2010. Bottom teeth hurt when eating. She had crowns in the past. Specialists: Endocrinology - Dr. Huber, last visit 03/13, testing on 04/07, follow up on . Rheumatology - Dr. Robin - Last seen November 2018. Follow up in April. Cardiology - Dr. Pérez - seeing every 6 months, last July 2018. 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 Chen, saw one year ago - for sleep apnea and asthma, not having problems withasthma curently, not needing inhalers very often. Gastrology - EGD in January to r/o barretts esophagus - gets nauseated at times, no vomiting. EGD was negative. [facility]. No follow up. She used to have indigestion but no longer. Taking omeprzole daily. 24 hour diet recall: Lactose free Breakfast: [place], coffee and orange juice. Lunch: Pasta salad, water Dinner: Crackers and tea. Snacks: None. Water: 3-4 bottles of water (16 oz bottle). Thirsty a lot at night. Causes her to urinate during the night. Exercise: Walks daily, maybe misses one day a week. Will walk at the mall if very cold. Past Medical History: Diagnosis Date Back pain COPD (chronic obstructive pulmonary disease) (HCC) Endocrine problem left adrenal gland with growth on it Fractures GERD (gastroesophageal reflux disease) Headache disorder High cholesterol History of breast surgery hx left julio bx Osteoarthritis Other postprocedural status(V45.89) 2 julio left lumpectomy's Palpitations PONV (postoperative nausea and vomiting) IBS Postmenopausal Family History Problem Relation Age of Onset Breast Cancer Maternal Aunt dx in her 30s Heart Mother 67 [place] Alcohol/Drug Father Alcoholic Seizures Father Seizures r/t DTs Heart Brother [place] and CABG Heart Brother [place], CABG, PCI Aneurysm Brother AAA Arthritis Brother RA in lungs Respiratory Brother RA in lungs Cancer Brother Renal cancer, chemo Heart Brother [place], CABG Aneurysm Brother AAA Heart Brother CHF COPD Sister Heart Sister CHF Diabetes Sister Heart Son 44 in his sleep; presumed [place] Heart Other 62 Amyloidosis No Known Problems Son No Known Problems Daughter Breast Cancer Other at 52 /dx ? Current Outpatient Medications Medication Sig amLodipine (NORVASC) 5 MG Oral Tab Take 0.5 Tabs by mouth DAILY. atorvastatin (LIPITOR) 20 MG Oral Tab TAKE ONE TABLET BY MOUTH ONCE DAILY DIRECTED citalopram (CELEXA) 10 MG Oral Tab TAKE ONE TABLET BY MOUTH ONCE DAILY DIRECTED Omeprazole 40 MG Oral CAPSULE DELAYED RELEASE TAKE ONE CAPSULE BY MOUTH ONCE DAILY Omeprazole 40 MG Oral CAPSULE DELAYED RELEASE [...] No current facility-administered medications for this visit. 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 HENT: Positive for ear pain (chronic) and tinnitus (chronic). Negative for congestion, ear discharge, sinus pain and sore throat. Eyes: Negative for pain, discharge and redness. Respiratory: Positive for shortness of breath (COPD). Negative for cough. Cardiovascular: Positive for palpitations (yesterday during testing; chronic issue). Negative for chest pain and leg swelling. Gastrointestinal: Positive for abdominal pain and nausea. Negative for blood in stool, constipation,diarrhea and vomiting. Genitourinary: Negative for dysuria, frequency and urgency. Musculoskeletal: Positive for back pain (lower back chronic) and neck pain ( chronic). Negative for myalgias. See HPI - joint and "long bone" pain Neurological: Positive for weakness. Negative for dizziness, tingling, tremors, sensory change and headaches. Psychiatric/Behavioral: Negative for depression. The patient is not nervous/ anxious. Objective PHYSICAL EXAM: VITALS: BP 118/54 (BP Location: Left arm) | Pulse 71 | Ht 5' 1" (1.549 m) | Wt 164 lb 6.4 oz (74.6 kg) | SpO2 98% | BMI 31.06 kg/m Body mass index is 31.06 kg/m. Physical Exam Vitals signs and nursing note reviewed. Constitutional: General: She is not in acute distress. Appearance: Normal appearance. She is well-developed. Neck: Thyroid: No thyroid mass, thyromegaly or thyroid tenderness. Vascular: No carotid bruit. Cardiovascular: Rate and Rhythm: Normal rate and regular rhythm. Heart sounds: Normal heart sounds. No murmur. No friction rub. No gallop. Pulmonary: Effort: Pulmonary effort is normal. No respiratory distress. Breath sounds: Normal breath sounds. Neurological: Mental Status: She is alert. Psychiatric: Mood and Affect: Mood and affect normal. Speech: Speech normal. Behavior: Behavior normal. Behavior is cooperative. ASSESSMENT / IMPRESSION: ICD-9-CM ICD-10-CM 1. Encounter to establish care V65.8 Z76.89 2. Screening for breast cancer V76.10 Z12.39 MAMMO SCREENING TOMOSYNTHESIS BILATERAL REFER TO WELLNESS NURSE FOR AWV 3. Screening for diabetes mellitus V77.1 Z13.1 COMPREHENSIVE METABOLIC PANEL 4. Screening for lipid disorders V77.91 Z13.220 LIPID PROFILE 5. Hyperparathyroidism (HCC) 252.00 E21.3 6. Reactive depression 300.4 F32.9 7. Chronic obstructive pulmonary disease, unspecified COPD type (HCC) 496 J44.9 Plan 1. Screening for breast cancer - MAMMO SCREENING TOMOSYNTHESIS BILATERAL; Future - REFER TO WELLNESS NURSE FOR AWV; Future 2. Screening for diabetes mellitus - COMPREHENSIVE METABOLIC PANEL; Future 3. Screening for lipid disorders - LIPID PROFILE; Future 4. Hyperparathyroidism (HCC) Being treated by Dr. Huber - had testing yesterday, we do not have results yet. 5. Encounter to establish care 6. Reactive depression She was started on Celexa after the of her son in 2011, now feeling like her depression in well controlled, she would like to try weaning from the celexa. She takes 10mg daily. Will take one tablet every other day for 1-2 weeks, then stop if tolerating. 7. Chronic obstructive pulmonary disease, unspecified COPD type (HCC) Chronic shortness of breath - she is taking the symbicort on an as needed basis. Advised to take twopuffs twice daily as prescribed. Mammogram today. Get on the waiting list at the pharmacy for the Shingrix vaccine. Schedule fasting labs. Schedule Annual Wellness Visit. Take the Symbicort inhaler twice daily. Albuterol inhaler as needed for shortness of breath. Celexa - Take every other day for 1-2 weeks, see how you feel. If doing well, can stop at that point. Please follow up in 3 months. Author: Landy Hunt NP 04/08/2019 17:10 documented in this encounter Plan of Treatment Date Type Specialty Care Team Description 04/13/2019 Office Visit Cardiology Giovanna Degroot PA [address] [place] [address] [phone] 04/16/2019 Lab Internal Medicine 05/04/2019 Ancillary Procedure Radiology 05/04/2019 Ancillary Procedure Radiology 05/04/2019 Chronic Care Management Family Practice 07/09/2019 Office Visit Family Practice Landy Hunt NP [address] [place] [address] [phone] Name Type Priority Associated Diagnoses Order Schedule COMPREHENSIVE METABOLIC Lab Routine Screening for diabetes Expected: 2018 PANEL mellitus (Approximate), Expires: 04/08/2020 LIPID PROFILE Lab Routine Screening for lipid Expected: 04/08/2019 disorders (Approximate), Expires: 04/08/2020 Name Type Priority Associated Diagnoses Order Schedule REFER TO WELLNESS Referral Routine Screening for breast Expected: 2018, NURSE FOR AWV cancer Expires: 04/08/2020 Health Maintenance Due Date Last Done Comments ZOSTER IMMUNIZATION SERIES 08/23/1995 (1 of 2) MAMMOGRAM (SCREENING) 09/09/2018 09/09/2017, 06/06/2016, 05/02/2015, Additional history exists MEDICARE ANNUAL WELLNESS 01/13/2019 01/13/2018, 01/07/2017, VISIT 12/23/2012, Additional history exists INFLUENZA VACCINE (#1) 2019 02/13/2018, 04/04/2016, 06/06/2012, Additional history exists DEPRESSION SCREENING 01/08/2020 01/07/2019 FALL RISK ASSESSMENT 01/08/2020 01/07/2019, 01/07/2019 LIPID DISORDER SCREENING 02/11/2020 02/10/2019, 10/28/2017, 04/18/2016, Additional history exists COLONOSCOPY SCREENING 12/28/2025 12/29/2015, [...] Type Problems Progress Blood Pressure Blood Pressure 118/54 No Dimas, < 150/90 (04/08/2019 MD Dana 1:02 PM EST) Note: This is an individualized [...] depression. Keep a regular sleep schedule Lifestyle No Dana Cochran MD Note: This is an individualized lifestyle [...] Summaries. Weight loss vs. 18 mo Lifestyle 12.6 (04/08/2019 1:02 PM No Dana Cochran MD max (lbs) >= 10 EST) Note: This is an individualized lifestyle goal for Elva Ash: Your body mass index (BMI) is more than 30. You should lose weight. A reasonable starting goal is to lose 10 pounds. Displayed above is how many pounds you have lost thus far towards your 10 pound weight loss goal. Take all prescribed medications as directed Self-management No Dana Cochran MD Note: This is an individualized self-management [...] of this encounter Implants Implanted Type Area Cashier And Waiter/Waitress Device Shelf Model / Serial Identifier Expiration Date / Lot Iol, [id number] 22.0 Diopter - [id number] Right: STORZ 08/26/2015 [id number] / Implanted: Qty: 1 on 02/19/2011 at [facility] [id number] / Iol, [id number] 21.5 Diopter - [id number] Left: Eye RUSTTreva 08/26/2015 [id number] / Implanted: Qty: 1 on 03/26/2011 at [facility] [id number] / documented as of this encounter Results MAMMO SCREENING TOMOSYNTHESIS BILATERAL (04/08/2019 2:42 PM EST) Specimen Impressions Performed At Incomplete evaluation of right breast focal asymmetries which additional imaging is recommended. Patient will be called back for further imaging. BI-RADS Assessment: Category 0: Incomplete - Need Additional Imaging Evaluation and/or Prior Mammograms for Comparison Management Recommendation: Additional imaging is recommended to include: Right true lateral and spot compression views along with possible ultrasound. Signed by Landy Linn MD on 04/08/2019 3:37 PM Narrative Performed At Procedure(s): MAMMO SCREENING TOMOSYNTHESIS BILATERAL Date of service: 04/08/2019 2:31 PM Provided clinical information: 73-year-old asymptomatic female for screening mammogram Procedure and materials: Bilateral 2-D digital mammography and 3-D digital breast tomosynthesis in CC and MLO projections were obtained. 2-D images were analyzed by a CAD system. Comparison studies: 06/30/18, 06/06/16, 05/02/15, 01/02/13. Most recent clinical breast exam: Unknown. Observations: Breast composition: b. There are scattered areas of fibroglandular density. Mass: None. Calcifications: None. Architectural Distortion: None. Asymmetries: Stable subcentimeter focal asymmetry anterior lower inner left breast, unchanged. Questionable focal asymmetries identified in the mid to posterior central inferior right breast best seen on 3-D imaging which additional imaging is recommended. Other pertinent findings: None. Procedure Note Interface, Rad Results - 04/08/2019 3:39 PM EST Procedure(s): MAMMO SCREENING TOMOSYNTHESIS BILATERAL Date of service: 04/08/2019 2:31 PM Provided clinical information: 73-year-old asymptomatic female for screening mammogram Procedure and materials: Bilateral 2-D digital mammography and 3-D digital breast tomosynthesis in CC and MLO projections were obtained. 2-D images were analyzed by a CAD system. Comparison studies: 06/30/18, 06/06/16, 05/02/15, 01/02/13. Most recent clinical breast exam: Unknown. Observations: Breast composition: b. There are scattered areas of fibroglandular density. Mass: None. Calcifications: None. Architectural Distortion: None. Asymmetries: Stable subcentimeter focal asymmetry anterior lower inner left breast, unchanged. Questionable focal asymmetries identified in the mid to posterior central inferior right breast best seen on 3-D imaging which additional imaging is recommended. Other pertinent findings: None. IMPRESSION Incomplete evaluation of right breast focal asymmetries which additional imaging is recommended. Patient will be called back for further imaging. BI-RADS Assessment: Category 0: Incomplete - Need Additional Imaging Evaluation and/or Prior Mammograms for Comparison Management Recommendation: Additional imaging is recommended to include: Right true lateral and spot compression views along with possible ultrasound. Signed by Landy Linn MD on 04/08/2019 3:37 PM documented in this encounter Visit Diagnoses Diagnosis Encounter to establish care - Primary Other reasons for seeking consultation Screening for breast cancer Breast screening, unspecified Screening for diabetes mellitus Screening for lipid disorders Hyperparathyroidism (HCC) Hyperparathyroidism, unspecified Reactive depression Dysthymic disorder Chronic obstructive pulmonary disease, unspecified COPD type (HCC) documented in this encounter (Home) [place], [place] [phone] (Work) documented as of this encounter
[2019-05-28 08:36] VITALS: BP 125/69
== END 2019-05-28 10:11 | disposition left against medical advice (07) ==
LOC: UCEAST 07:55
DX: Z53.21 Procedure and treatment not carried out due to patient leaving prior to being seen by health care provider (principal)